=== PATIENT | male | born 1940 | race Caucasian/White ===

== ENCOUNTER → 2017-05-19 | Outpatient (CLI) | payer MEDICARE, OTHER ==
[2017-05-19 14:14] LABS: HEMOGLOBIN A1a 1.2 %; HEMOGLOBIN A1b 2.1 %; HEMOGLOBIN Ao 81.7 %; HEMOGLOBIN LA1C 2.6 %; HEMOGLOBIN P3 4.7 %
== END ==
LOC: PLAB 10:34
DX: E11.9 Type 2 diabetes mellitus without complications (principal); Z12.5 Encounter for screening for malignant neoplasm of prostate
CPT/HCPCS: 36415; 83036; G0103

== ENCOUNTER → 2017-05-26 | Outpatient (CLI) | payer MEDICARE, OTHER ==
[2017-05-26 15:57] LABS: HEMOGLOBIN A1a 1.1 %; HEMOGLOBIN A1b 2.1 %; HEMOGLOBIN LA1C 2.5 %; HEMOGLOBIN P3 6.1 %
== END ==
LOC: PLAB 11:44
DX: E11.9 Type 2 diabetes mellitus without complications (principal)
CPT/HCPCS: 36415; 83036

== ENCOUNTER → 2017-09-01 | Outpatient (CLI) | payer MEDICARE, OTHER ==
[2017-09-01 16:19] LABS: HEMOGLOBIN A1C 6.8 % (4.3-6.0)
== END ==
LOC: PLAB 08:56
DX: E11.9 Type 2 diabetes mellitus without complications (principal)
CPT/HCPCS: 36415; 83036

== ENCOUNTER → 2017-11-13 | Outpatient (CLI) | payer MEDICARE, OTHER | LOC: PLAB 09:15 | DX: E11.9 Type 2 diabetes mellitus without complications (principal) | CPT/HCPCS: 36415; 83036 ==

== ENCOUNTER 2017-12-20 09:56 | Day surgery (SDC) | payer MEDICARE, OTHER ==
[~2017-12-20] VITALS: Ht 175.3 cm; Wt 89.7 kg
[2017-12-20] MEDS ORDERED: IOHEXOL 350 MG/ML 50 ML BTL (for Cath Lab) OTHER ONE (09:57)
[2017-12-20 10:38] VITALS: BP 156/74; PULSE 61; RESP 18; TEMP 97.5; O2SAT 99
[2017-12-20] MEDS ORDERED: GLIM2TAB PO (10:46)
[2017-12-20] MEDS ORDERED: TAMS0.4C4 PO (10:46)
[2017-12-20] MEDS ORDERED: PLAV75TA29 PO (10:46)
[2017-12-20] MEDS ORDERED: LIPI10TA PO (10:46)
[2017-12-20] MEDS ORDERED: BENI40TA29 PO (10:46)
[2017-12-20] MEDS ORDERED: AMLO5 PO (10:46)
[2017-12-20] MEDS ORDERED: NAME10TA PO (10:46)
[2017-12-20] MEDS ORDERED: ASPI-183 PO (10:46)
[2017-12-20] MEDS ORDERED: LYRI50CA PO (10:46)
[2017-12-20] MEDS ORDERED: NEXI40CA PO (10:46)
[2017-12-20] MEDS ORDERED: NITR400A3 SL (10:46)
[2017-12-20] MEDS ORDERED: NS 1000P @30 MLS/HR (KVO) IV SCH (11:00)
[2017-12-20 11:06] LABS: AUTOMATED NEUTROPHIL # 4.5 TH/MM3 (1.8-7.7); BASOPHIL % 0.5 % (0.0-2.0); EOSINOPHIL # 0.1 TH/MM3 (0-0.4); EOSINOPHIL % 1.4 % (0.0-4.0); HEMATOCRIT 44.8 % (39.0-51.0); HEMOGLOBIN 15.4 GM/DL (13.0-17.0); LYMPH % 11.7 % (9.0-44.0); LYMPHOCYTE # 0.7 TH/MM3 (1.0-4.8); MEAN CELL VOLUME 84.3 FL (80.0-100.0); MEAN CORPUSCULAR HGB CONC 34.4 % (32.0-36.0); MEAN PLATELET VOLUME 9.4 FL (7.0-11.0); MONO % 6.1 % (0.0-8.0); MONOCYTE # 0.3 TH/MM3 (0-0.9); NEUT % 80.3 % (16.0-70.0); PLATELET COUNT 164 TH/MM3 (150-450); RED BLOOD COUNT 5.32 MIL/MM3 (4.50-5.90); RED CELL DISTRIBUTION WIDTH 13.6 % (11.6-17.2); WHITE BLOOD COUNT 5.6 TH/MM3 (4.0-11.0)
[2017-12-20 11:13] LABS: PROTHROMBIN TIME - PATIENT 10.4 SEC (9.8-11.6)
[2017-12-20 11:16] LABS: CALCIUM 9.4 MG/DL (8.5-10.1); CREATININE 1.52 MG/DL (0.60-1.30)
[2017-12-20] MEDS ORDERED: MIDAZOLAM HCL 2 MG/2 ML VIAL ONE (12:53)
[2017-12-20] MEDS ORDERED: LIDOCAINE HCL 1% PF 30 ML VIAL ONE (12:57)
--- NOTE | 2017-12-20 13:55 | CATHPROC ---
[facility] HIS Report Study Information Study Number Admission Scheduled Start Study Start [id number] Dec 20 2017 9:56AM 12/20/2017 Dec 20 2017 12:47PM [place] [facility] Cardiac Catheterization Admit Source Facility Department Other [facility] - Toddler Teacher Physician and Clinical Staff Initial MD Hirsch, Travis Track Production Engineer Monica Urbina,ZOEY Other cathlab, cathlab Recorder Alyssa Colvin,COYOTE HUNTER TECH2 Scrub Hostdejah, Cayetano,RT(R) Procedures Performed Procedure Location (Site) Vessel Name Coronary Angiograms LCA Left Coronary Coronary Angiograms RCA Right Coronary L Heart Cath LV Gram-hand inj. LV LV Ventricle Equipment Time Director Of Loss Prevention Description Size Mfg Part Number Used/Scraped TRANSDUCER, TRTalentEarthAVE [id number] 12:54 JACKSON PELLETIER * Used W/STOCKCOCK *[id number] INTRODUCER SET, 12:54 [employer] FR 5 [id number] *[id number] Used MICROPUNCTURE STIFF [id number] *[id number] 538-420 *[id number] 538-422 *[id number] 538-453S *[id number] 12:54 MEDLINE IND[employer] PACK, CCL CUSTOM * Used *[id number] 12:54 Advanced Circulatory PACER PEN, SKIN DUAL W/ RULER * Used *[id number] 12:54 [employer]ify WIRE, 3MMJ .035 180CM 180CM Used *[id number] PROBE COVER, STERILE [id number] 12:54 [employer] MEDICAL * Used ULTRASOUND W/ GEL *[id number] 12:54 NAMIC MANIFOLD, 4 PORT * Used *[id number] 12:54 NYCOMED OMNIPAQUE, 350 MG, 150ML 150ML [id number] Used [id number] 12:54 [employer] BLANKET,WARM AIR CCL * Used *[id number] 12:54 [employer] MEDICAL SHEATH, FR4 TERUMO (10CM) FR 4 Used *[id number] History: Current Medications Medication Dosage/Unit Route Frequency Last Date/Time Taken ASA PLAVIX NORVASC LYRICA Nexium NTG SL History: Allergies Allergy Reaction No Known Allergies History: Risk Factors Family History of Hypertension Dyslipidemia Previous NH Previous Heart Failure Premature CAD Yes Yes No Yes No Prior Valve Prior PCI Prior PCIDate Prior CABG Surgery No Yes 09/04/1995 No Cerebrovascular Peripheral Artery Chronic Lung On Dialysis Diabetes Diabetes Therapy Disease Disease Disease No No No No Yes Oral History: Symptoms/Diagnosis Selection Items SOB History: CV Disease Selection Items Known CAD History: Stress Tests Stress or Imaging Studies Performed Yes Standard Exercise Stress Test No Stress Echo No Stress Test SPECT No Stress Test CMR Stress Test CMR Result Stress Test CMR Ischemia Risk/Extent Yes Positive Intermediate Cardiac CTA Coronary Calcium Score No No History: Other Disease Selection Items CAD Gerd HTN History: NH/CV Data Previous Cath Date 09/04/1995 History: Other Current Smoker Method Quit Packs a Day Years Used Pack Years No Cigarettes 17 Years Ago 1 30 30 Labs Hgb (g/dl) Hct (%) WBC (l/cumm) Platelets (thousands) 11.60-17.00 35.00-51.00 4.00-11.00 150.00-450.00 15.4 44.8 5.6 164 Glucose (mg/dl) BUN (mg/dl) Creatinine (mg/dl) BUN:Creatinine (1:x) 74.00-106.00 7.00-18.00 0.50-1.30 10.00-20.00 176 25 1.5 16.7 Na (meq/l) K (meq/l) 136.00-145.00 3.50-5.10 139 4.5 INR (PTT:PT) 0.90-1.10 1 Medication Medication Total Dose (Bolus/Oral) Medication Total Dosage/Unit 1% XYLOCAINE 20 mL FENTANYL 50 mcg OXYGEN 2 l/min VERSED 1 mg Medications (Bolus/Oral) Medication Time Given Dosage/Unit Administered By Reason VERSED 12/20/2017 1:13:34 PM 1 mg Monica Urbina 1 mg VERSED given in lab by Monica Urbina RN in Left Antecubital via Peripheral IV. Ordered by Travis Stokes. FENTANYL 12/20/2017 1:14:00 PM 50 mcg Monica Urbina 50 mcg FENTANYL given in lab by Monica Urbina RN in Left Antecubital via Peripheral IV. Ordered by Travis Hirsch. OXYGEN 12/20/2017 1:14:04 PM 2 l/min Monica Urbina 2 l/min OXYGEN given in lab by Monica Urbina RN via Nasal. Ordered by Travis Hirsch. 1% XYLOCAINE 12/20/2017 1:15:45 PM 20 mL Travis Hirsch 20 mL 1% XYLOCAINE given in lab by Travis Hirsch in Right Groin via Subcutaneous. Ordered by Travis Abbott. Medication (Drip) Medication Time Given Dosage/Unit Concentration/Unit Diluent (ml) Solution IV Solutions 12/20/2017 12:51:36 PM 0 mL (IV) 500 NaCl .9 IV Solutions given in lab by Monica Urbina RN in Left Antecubital via Peripheral IV. Pump/Drip Flow = 20 ml/hr using NaCl .9. Ordered by Travis Hirsch. Initial Case Assessment Cardiovascular HR NIBP Chest Pain 49 179/81 0 Edema Present Skin color Skin None Normal Warm Dry Circulatory - Right Pulses Dorsalis Pedis Femoral 3 3 Scale (0,1,2,3,4,d) Circulatory - Left Pulses Dorsalis Pedis Femoral 3 3 Scale (0,1,2,3,4,d) Neurological State Oriented to time-place- Alert Moves all extremities person Respiration - General Respiration Rate SpO2 (%) (B/min) 16 98 Final Case Assessment Cardiovascular HR NIBP 55 163/83 Edema Present Skin color Skin None Normal Warm Dry Circulatory - Right Pulses Dorsalis Pedis Femoral 3 3 Scale (0,1,2,3,4,d) Circulatory - Left Pulses Dorsalis Pedis Femoral 3 3 Scale (0,1,2,3,4,d) Neurological State Oriented to time-place- Alert Moves all extremities person Respiration - General Respiration Rate SpO2 (%) (B/min) 14 97 Chronological Log Time Study Chronological Log 12:47:08 Patient arrived via Bed. 12:47:09 Patient Name, D.O.B, / Armband Verified By R.N. Vitals capture started with the following parameters, Patient=Adult, Interval=5 min, Initial Pr zcrvsk=478 mmHg, 12:47:11 Deflation Rate=5 mmHg, Cuff placed on Right Ankle 12:49:26 HR=49 bpm, DHNF=715/81 mmhg, SpO2=98.0 %, Resp=16 B/min, Pain=0, Edward=10, [place]=2 12:51:22 Consent signed by the physician and the patient and verified by the Toddler Teacher staff. 12:51:23 Pre-op and post- op instructions given; patient acknowledges understanding of instructions. 12:51:31 Patient has been NPO for Less than 6Hrs. 12:51:32 no Skin Breakdown- 12:51:33 Patient Warmer Placed on the Table. 12:51:34 Arik Prominences Protected 12:51:35 A # 20 IV was noted in the Antecubital (left). Grade = 0 IV Solutions given in lab by Monica Urbina, RN in Left Antecubital via Peripheral IV. Pump/Dri p Flow = 20 ml/hr using 12:51:36 NaCl .9. Ordered by Travis Hirsch. 12:51:37 History and physical on the chart or being dictated. Assessment: Initial Case, HR=49 BPM, XYQI=912/81 mmhg, Chest Pain=0, Edema=None, Color=Normal, Skin = Warm, Dry Right Pulses: Hany Ped=3, Femoral=3 12:51:38 Left Pulses: Hany Ped=3, Femoral=3 Neurological: State=Alert, Ox3, FERNANDEZ Respiration: Resp=16 B/min, SpO2=98 % 12:52:32 Reference ECG taken 12:53:03 HR=51 bpm, OENX=161/71 mmhg, SpO2=97.0 %, Resp=15 B/min, Pain=0, Edward=10, [place]=2 12:57:58 HR=52 bpm, WYND=733/114 mmhg, SpO2=93.0 %, Resp=9 B/min, Pain=0, Edward=10, [place]=2 13:02:59 HR=53 bpm, WZPF=756/74 mmhg, SpO2=98.0 %, Resp=15 B/min, Pain=0, Edward=10, [place]=2 13:03:13 Bilateral groins prepped with 2% chlorhexidine, and draped after a 3 minute waiting time. 13:04:43 Pressure channel 1 zeroed. 13:08:41 HR=51 bpm, XMDI=991/176 mmhg, SpO2=97.0 %, Resp=12 B/min, Pain=0, Edward=10, [place]=2 13:13:07 HR=52 bpm, BFMR=495/65 mmhg, SpO2=93.0 %, Resp=12 B/min, Pain=0, Edward=10, [place]=2 13:13:34 1 mg VERSED given in lab by Monica Urbina RN in Left Antecubital via Peripheral IV. Order ed by Travis Hirsch. 50 mcg FENTANYL given in lab by Monica Urbina RN in Left Antecubital via Peripheral IV. Order ed by Torrey, 13:14:00 Michaelun. 13:14:04 2 l/min OXYGEN given in lab by Monica Urbina RN via Nasal. Ordered by Travis Hirsch. 13:15:07 Case Start 20 mL 1% XYLOCAINE given in lab by Travis Hirsch in Right Groin via Subcutaneous. Ordered by Torrey, 13:15:45 Michaelun. 13:17:30 Access site was Right Femoral Artery. A INTRODUCER SET, MICROPUNCTURE STIFF FR 5 was advanced into the Fem Art (right) using the Rl fied Seldinger 13:17:37 technique. A SHEATH, FR4 TERUMO (10CM) FR 4 was exchanged in the Fem Art (right). This was necessary in or ix to achieve 13:17:45 vascular hemostasis. A JL 4.0 INFINITI CATHETER FR 4 was advanced over a wire. OMNIPAQUE, 350 MG, 150ML 150ML was us ed for 13:18:11 injections. 13:18:31 HR=57 bpm, SINU=981/48 mmhg, SpO2=97.0 %, Resp=12 B/min, Pain=0, Edward=10, [place]=2 Recorded Pressure: Ao, HR=55, Condition=Condition 1 13:19:06 (Aorta) Ao 142/62/92 13:20:10 The LCA was injected and visualized at various angles. OMNIPAQUE, 350 MG, 150ML 150ML used . After removing the current catheter a 3DRC INFINITI CATHETER FR 4 was advanced over a WIRE, 3MM J .035 180CM 13:20:53 180CM. 13:22:42 The RCA was injected and visualized at various angles. OMNIPAQUE, 350 MG, 150ML 150ML used . 13:22:59 HR=56 bpm, BYSR=913/76 mmhg, SpO2=96.0 %, Resp=16 B/min, Pain=0, Edward=10, [place]=2 After removing the current catheter a JL 5.0 INFINITI CATHETER FR 4 was advanced over a WIRE, 3 MMJ .035 180CM 13:24:17 180CM. 13:25:46 The LCA was injected and visualized at various angles. OMNIPAQUE, 350 MG, 150ML 150ML used . 13:28:43 HR=56 bpm, QUVJ=905/76 mmhg, SpO2=96.0 %, Resp=12 B/min, Pain=0, Edward=10, [place]=2 13:30:27 Catheter was removed A PIGTAIL ANG. INFINITI CATHETER FR 4 was advanced over a wire. OMNIPAQUE, 350 MG, 150ML 150ML was used 13:30:29 for injections. Recorded Pressure: LV, HR=54, Condition=Condition 1 13:32:20 (Left Ventricle) LV 150/8/19 13:32:43 The LV was manually injected with 10 cc's and visualized. OMNIPAQUE, 350 MG, 150ML 150ML us ed. Recorded Pressure: LV, Ao, HR=54, Condition=Condition 1 13:33:19 (Left Ventricle) LV 146/12/23, (Aorta) Ao 148/65/97 13:33:32 HR=52 bpm, QOVS=610/76 mmhg, SpO2=97.0 %, Resp=15 B/min, Pain=0, Edward=10, [place]=2 13:37:16 Catheter was removed 13:37:18 Case End 13:37:58 HR=55 bpm, TJXT=386/83 mmhg, SpO2=97.0 %, Resp=14 B/min, Pain=0, Edward=10, [place]=2 Assessment: Final Case, HR=55 BPM, EJNJ=725/83 mmhg, Edema=None, Color=Normal, Skin = Warm, Dr y Right Pulses: Hany Ped=3, Femoral=3 13:38:03 Left Pulses: Hany Ped=3, Femoral=3 Neurological: State=Alert, Ox3, FERNANDEZ Respiration: Resp=14 B/min, SpO2=97 % 13:38:38 Vitals capture stopped. 13:39:56 Sheath(s) left in place, will be removed in Holding Area 13:40:50 Catheter(s) removed without difficulty 13:40:53 Sterile dressing applied to site 13:41:05 No case complications noted. 13:41:07 Cine recording checked. 13:41:08 Bedside Report will be given. 13:41:14 A Left Heart Cath was performed. 13:41:15 Patient moved to stretcher 13:41:16 Clinical correlaton risk stratification. End Study - Maximum Contrast Load Max Contrast Load (mL) 298.9 End Study - Radiation Exposure Fluoro Time (minutes) 2.7 End Study - Patient Disposition Complications Transferred To No Telemetry Bed
[2017-12-20] MEDS ORDERED: PAPAVERINE INJ 60 MG, NITROGLYCERIN INJ 100 MCG, DILTIAZEM INJ 100 MG in SODIUM CHLORID... IRRIGATION SCH (14:15)
[2017-12-20] MEDS ORDERED: CHLORHEXIDINE GLUCONATE 4% SOLN 120 ML BTL TOPICAL SCH (14:15)
[2017-12-20] MEDS ORDERED: CEFAZOLIN INJ 500 MG in SODIUM CHLORIDE 0.9% IRR BTL 500 ML IRRIGATION SCH (14:15)
[2017-12-20] MEDS ORDERED: METOPROLOL TARTRATE 25 MG TAB PO SCH (14:15)
[2017-12-20] MEDS ORDERED: ceFAZolin 2 GM PREMIX 50 ML IV SCH (14:15)
--- NOTE | 2017-12-20 14:18 | PD.CAR.PN ---
CVT Progress Note Subjective/Hospital Course: Pt examined and chart reviewed. Full consult dictated. OR next week. Needs to be off of Plavix for 5 days. Risk Model and Variables - STS Adult Cardiac Surgery Database Version 2.81 RISK SCORES About the STS Risk Calculator Procedure: CAB Only Risk of Mortality: 2.548% Morbidity or Mortality: 20.746% Long Length of Stay: 9.962% Short Length of Stay: 30.166% Permanent Stroke: 2.098% Prolonged Ventilation: 12.327% DSW Infection: 0.574% Renal Failure: 9.499% Reoperation: 6.282% Objective: Vital Signs Date Time Temp Pulse Resp B/P (MAP) Pulse Ox O2 Delivery O2 Flow Rate FiO2 12/20/17 10:38 97.5 61 18 156/74 (101) 99 Labs: Laboratory Tests Test 12/20/17 10:33 White Blood Count 5.6 TH/MM3 (4.0-11.0) Red Blood Count 5.32 MIL/MM3 (4.50-5.90) Hemoglobin 15.4 GM/DL (13.0-17.0) Hematocrit 44.8 % (39.0-51.0) Mean Corpuscular Volume 84.3 FL (80.0-100.0) Mean Corpuscular Hemoglobin 29.0 PG (27.0-34.0) Mean Corpuscular Hemoglobin Concent 34.4 % (32.0-36.0) Red Cell Distribution Width 13.6 % (11.6-17.2) Platelet Count 164 TH/MM3 (150-450) Mean Platelet Volume 9.4 FL (7.0-11.0) Neutrophils (%) (Auto) 80.3 % (16.0-70.0) Lymphocytes (%) (Auto) 11.7 % (9.0-44.0) Monocytes (%) (Auto) 6.1 % (0.0-8.0) Eosinophils (%) (Auto) 1.4 % (0.0-4.0) Basophils (%) (Auto) 0.5 % (0.0-2.0) Neutrophils # (Auto) 4.5 TH/MM3 (1.8-7.7) Lymphocytes # (Auto) 0.7 TH/MM3 (1.0-4.8) Monocytes # (Auto) 0.3 TH/MM3 (0-0.9) Eosinophils # (Auto) 0.1 TH/MM3 (0-0.4) Basophils # (Auto) 0.0 TH/MM3 (0-0.2) CBC Comment DIFF FINAL Differential Comment Prothrombin Time 10.4 SEC (9.8-11.6) Prothromb Time International Ratio 1.0 RATIO Activated Partial Thromboplast Time 27.1 SEC (24.3-30.1) Blood Urea Nitrogen 25 MG/DL (7-18) Creatinine 1.52 MG/DL (0.60-1.30) Random Glucose 176 MG/DL (74-106) Calcium Level 9.4 MG/DL (8.5-10.1) Sodium Level 139 MEQ/L (136-145) Potassium Level 4.5 MEQ/L (3.5-5.1) Chloride Level 105 MEQ/L (98-107) Carbon Dioxide Level 27.0 MEQ/L (21.0-32.0) Anion Gap 7 MEQ/L (5-15) Estimat Glomerular Filtration Rate 45 ML/MIN (>89) Result Diagram: 12/20/17 1033 12/20/17 1033 Anupama Hill MD Dec 20, 2017 14:18
[2017-12-20] MEDS ORDERED: PILL SPLITTER OTHER PRN (14:30)
--- NOTE | 2017-12-20 14:40 | MA ---
cc: Travis Hirsch MD,Eugene Humphreys MD DATE: 12/20/2017 INDICATIONS FOR CATHETERIZATION: Unstable angina, abnormal nuclear stress test. CONSENT: Full informed consent was obtained prior to the procedure. The risks of , bleeding, myocardial infarction, perforation, aspiration, foreseen and unforeseen complications were reviewed. The patient fully appeared to understand the risks. The risks of bypass surgery, stent placement and also renal failure given his elevated creatinine were also reviewed in great detail. PROCEDURAL STATEMENT: The patient was draped and prepped in the usual manner. Right femoral artery was entered using a micropuncture technique. Via the 4-Jordanian sheath left and right coronary catheters were used to intubate the left and right coronaries, pigtail catheter to left ventricle. Multiple angiographic views were carried out. At the end of the catheterization procedure, all catheters and sheaths were removed. Manual pressure was applied until good hemostasis was achieved and the patient returned to his room in stable condition. FINDINGS: HEMODYNAMICS: Aortic pressure was 148/65, mean of 97. The left ventricular pressure 146 with a left ventricular end-diastolic pressure of 23. No evidence of a significant gradient on pullback across the LV outflow tract and aortic valve. LEFT VENTRICULOGRAM: The overall left ventricular ejection fraction was 60%. No evidence of significant mitral regurgitation or mural thrombus. CORONARIES: The left main was free of significant disease. The left anterior descending artery had 50% stenosis proximally. There was evidence of a previously placed stent just after a medium size diagonal branch. The stent showed a 99% restenosis just distal to this in the distal LAD with further long 60%-70% stenosis in a calcified vessel. The circumflex vessel was large with a medium size first obtuse marginal branch. In the mid circumflex there was 75% stenosis. There was a large second obtuse marginal branch. The right coronary artery was a large, dominant vessel with a large posterior descending artery. Small bifurcating posterolateral branches that were free of significant disease. CONCLUSION: High-grade restenosis of mid LAD just at the point of the diagonal branch, high-grade stenosis of the circumflex. PLAN: Consider bypass surgery to the LAD and because of the proximal LAD stenosis the diagonal branch and the OM2 versus medical management. Salvage angioplasty of the circumflex and proximal LAD would also be another option; however, the patient's creatinine is elevated at 1.51. This would increase the risks of renal failure with prolonged stenting procedures, etc. Given his relatively youngish age, a good long-term prognosis would be obtained with the LAD, diagonal, and OM surgeries. Will refer to Dr. Hill for an opinion regarding off-pump bypass surgery. MD CARLENE Vasquez/TL/ , 01:52 PM , 02:30 PM
--- NOTE | 2017-12-20 15:07 | MB ---
cc: Anupama Hill MD,Travis Kenney,Eugene Humphreys MD DATE: 12/20/2017 DATE OF CONSULTATION: 12/20/2017 REFERRING PHYSICIAN: Dr. Hirsch REASON FOR CONSULTATION: Symptomatic coronary artery disease. HISTORY OF PRESENT ILLNESS: Mr. Farr is a very pleasant 77-year-old gentleman with a known history of coronary artery disease, status post previous MO and stenting of the LAD in 1995, who now presents with a couple-month history of recurrent chest pain relieved with nitroglycerin spray. The patient has been seen by Dr. Hirsch and has undergone further workup including an echocardiogram, which has revealed preserved ventricular function and a nuclear stress test which was abnormal. Based on this, he was taken to the dye lab technician today underwent a coronary angiogram, which revealed severe 99% disease involving the mid to distal LAD as well as associated proximal LAD lesion of 60% and circumflex lesion of 80% I am now being considered for surgical revascularization therapy. At the present time, he remains pain free, hemodynamically stable with no evidence of ongoing ischemia. PAST MEDICAL HISTORY: 1. Significant for coronary artery disease, status post MO and stenting as described above. 2. Hypertension. 3. Diabetes mellitus. 4. Dementia. 5. Idiopathic progressive neuropathy. 6. History of stroke. 7. Meza's esophagus. 8. Hyperlipidemia. 9. GERD. 10. Allergic rhinitis. PAST SURGICAL HISTORY: 1. Remarkable for colonoscopy and EGD by Dr. Tena in February 2017. 2. Heart catheterization in 2014. 3. Colonoscopy in 2011. 4. Intracoronary stent in 1995, as described above. 5. Back surgery in 1973. ALLERGIES: THE PATIENT REPORTS NO KNOWN DRUG ALLERGIES. CURRENT MEDICATIONS: Include: 1. Tamsulosin. 2. Plavix. 3. Atorvastatin. 4. Nitroglycerin spray. 5. Amlodipine. 6. Benicar. 7. Aspirin. 8. Pregabalin. 9. Memantine. 10. Nexium. 11. Glimepiride. SOCIAL HISTORY: Denies any history of smoking or illicit drug use. He is a social drinker and drinks about 2-4 times a month. FAMILY HISTORY: Significant for premature coronary artery disease in a sibling as well as in the parents. REVIEW OF SYSTEMS: As above. All other parameters are negative. PHYSICAL EXAMINATION: VITAL SIGNS: On examination today, he is 175 cm tall, weighs 89 kg. Blood pressure is 136/74 with a heart rate of 61 which is regular, respiratory rate is 18 and he is afebrile. HEENT: Normocephalic, atraumatic. Pupils nonreactive. Extraocular muscles intact. NECK: No cervical lymphadenopathy, carotid bruit or JVD. CARDIOVASCULAR: Regular rate and rhythm. Normal S1, S2, without gallops, rubs, or murmurs. LUNGS: Clear to auscultation bilaterally. ABDOMEN: Soft, nontender, nondistended. Normoactive bowel sounds. No hepatosplenomegaly. EXTREMITIES: Bilateral lower extremity pulses are intact without cyanosis, clubbing or edema. No venous varicosities. NEUROLOGIC: Neurologically intact with no focal deficits. He does have a slight left drooping of the oral angle. IMPRESSION: 1. Two-vessel coronary artery disease, status post previous stenting. 2. Previous myocardial infarction. 3. Previous stroke. 4. Gastroesophageal reflux disease. 5. Diabetes mellitus. 6. Hypertension. 7. Hyperlipidemia. 8. Dementia. 9. Meza's esophagus. PLAN: The clinical, echo and angiographic findings were discussed in detail with the patient today. Therapeutic options available including off-pump coronary artery bypass grafting was recommended. I agree with Dr. Hirsch that he would maximally benefit from bypass to his LAD, diagonal, as well as OM distributions. The risks, complications, and benefits of the surgical procedure and the technical details were discussed in detail and all questions answered. He appears to comprehend the given information and wishes to proceed with the planned operation. Given the fact that he is on Plavix, he will need to be off that for 5 days prior to entertaining surgical intervention. To that effect, we will schedule his surgery for next week. In the meantime, we will obtain vein mapping, PFTs, as well as carotid duplex imaging. Thank you for allowing me to participate in the care of this patient. Of note, the STS risk calculator was performed and is documented in the chart and the risks were discussed with the patient in detail. MD CHUY Swan/CEE , 02:30 PM , 03:06 PM
[2017-12-20] MEDS ORDERED: PAPAVERINE INJ 60 MG, NITROGLYCERIN INJ 100 MCG, VERAPAMIL INJ 100 MG in SODIUM CHLORID... IRRIGATION SCH ×8 (16:15)
[2017-12-20 17:18] LABS: HEMOGLOBIN A1C 7.5 % (4.3-6.0)
--- NOTE | 2017-12-20 18:08 | RADRPT ---
EXAM DATE/TIME: 12/20/2017 17:45 [facility] COMPARISON: No previous studies available for comparison. INDICATIONS : Evaluate for pneumonia, pneumothorax, or communicable disease. Pre-op CABG. MEDICAL HISTORY : None. SURGICAL HISTORY : None. ENCOUNTER: Initial ACUITY: 1 day PAIN SCORE: 0/10 LOCATION: Bilateral chest FINDINGS: PA and lateral views of the chest demonstrate the lungs to be symmetrically aerated without evidence of mass, infiltrate or effusion. The cardiomediastinal contours are unremarkable. Osseous structure s are intact. CONCLUSION: No acute disease. Watson Blair MD on December 20, 2017 at 18:06 Board Certified Radiologist. This report was verified electronically.
[2017-12-20 19:01] LABS: BILIRUBIN, URINE NEG (NEG); BLOOD, URINE NEG (NEG); GLUCOSE,URINE NEG (NEG); HYALINE CAST, URINE 2 /lpf (RARE); KETONE, URINE NEG (NEG); MUCUS URINE FEW /lpf (OCC); NITRITE,URINE NEG (NEG); PH, URINE 5.5 (5.0-8.5); URINE COLOR LIGHT-YELLOW (YELLW/STRAW); URINE LEUKOCYTE ESTERASE NEG (NEG)
--- NOTE | 2017-12-20 19:48 | RADRPT ---
EXAM DATE/TIME: 12/20/2017 19:03 [facility] COMPARISON: No previous studies available for comparison. INDICATIONS : Preoperative coronary artery bypass graft. MEDICAL HISTORY : Hypertension. Hypercholesterolemia. CVA. NE. Diabetes. GERD. Dementia. Meza's esophagus. form er smoker. respiratory disorder. gastrointestinal disorders. SURGICAL HISTORY : Heart catheterization. Cardiac stent. Back surgery. Intracoronary stent 1995. ENCOUNTER: Initial ACUITY: 1 day PAIN SCORE: 0/10 LOCATION: Bilateral Lower extremity GREATER SAPHENOUS VEIN THIGH: PROXIMAL: Right 8 mm Left 8 mm MID: Right 3 mm Left 4 mm DISTAL: Right 3 mm Left 3 mm CALF: PROXIMAL: Right 2 mm Left 3 mm MID: Right 3 mm Left 2 mm DISTAL: Right 3 mm Left 2 mm FINDINGS: The venous system of the lower extremities are patent by color Doppler imaging. Measurements of the leg veins (in mm) are listed above. CONCLUSION: Patent saphenous veins bilaterally Watson Blair MD on December 20, 2017 at 19:46 Board Certified Radiologist. This report was verified electronically.
--- NOTE | 2017-12-20 19:49 | RADRPT ---
EXAM DATE/TIME: 12/20/2017 18:05 [facility] COMPARISON: No previous studies available for comparison. INDICATIONS : Preoperative coronary artery bypass graft. MEDICAL HISTORY : Hypertension. Hypercholesterolemia. CVA. [place]. Diabetes. GERD. Dementia. Meza's esophagus. for kaur smoker. respiratory disorder. gastrointestinal disorders. SURGICAL HISTORY : Heart catheterization. Cardiac stent. Back surgery. Intracoronary stent 1995. ENCOUNTER: Initial ACUITY: 1 day PAIN SCORE: LOCATION: Bilateral neck PEAK SYSTOLIC VELOCITIES (cm/sec): ICA/CCA RATIO: Right: 1.5 Left: 1.4 ICA: Right: 114 Left: 123 CCA: Right: 78 Left: 90 ECA: Right: 147 Left: 135 VERTEBRAL: Right: 73 antegrade Left: 65 antegrade Elevated flow velocities and ICA/CCA ratios have been found to correlate with increased degrees of vessel stenosis, calculated as percentage of diameter relative to a normal segment of distal ICA/CCA FINDINGS: RIGHT CAROTID: Mild-moderate eccentric plaque. The No significant stenosis is visualized. The waveforms are within normal limits. LEFT CAROTID: Mild-moderate eccentric plaque. No significant stenosis is visualized. The waveforms are within norm al limits. VERTEBRAL ARTERIES: Antegrade flow is seen in both vertebral arteries. MISCELLANEOUS: None. CONCLUSION: No evidence of flow-limiting carotid stenosis. Watson Blair MD on December 20, 2017 at 19:46 Board Certified Radiologist. This report was verified electronically.
--- NOTE | 2017-12-20 19:50 | RADRPT ---
EXAM DATE/TIME: 12/20/2017 18:40 [facility] COMPARISON: No previous studies available for comparison. INDICATIONS : Preoperative coronary artery bypass graft. MEDICAL HISTORY : Hypertension. Hypercholesterolemia. CVA. ND. Diabetes. GERD. Dementia. Meza's esophagus. form er smoker. respiratory disorder. gastrointestinal disorders. SURGICAL HISTORY : Cardiac stent. Back surgery. Intracoronary stent 1995. ENCOUNTER: Initial ACUITY: 1 day PAIN SCORE: 0/10 LOCATION: Bilateral Lower extremity TECHNIQUE: Venous ultrasound of the left and right leg was performed from the inguinal ligament to the proximal calf. Real-time, color Doppler and spectral tracing, compression and augmentation techniques were us ed. FINDINGS: RIGHT LEG: There is normal compressibility of the deep venous system from the inguinal region to the proximal ca lf. No echogenic clot is seen in the lumen of the common femoral, femoral, popliteal, and posterior tibial veins. There is a normal response of the venous system to proximal and distal augmentation an d respiration. LEFT LEG: There is normal compressibility of the deep venous system from the inguinal region to the proximal ca lf. No echogenic clot is seen in the lumen of the common femoral, femoral, popliteal, and posterior tibial veins. There is a normal response of the venous system to proximal and distal augmentation an d respiration. CONCLUSION: Normal examination. Watson Blair MD on December 20, 2017 at 19:48 Board Certified Radiologist. This report was verified electronically.
[2017-12-20] MEDS ORDERED: MUPIROCIN 2% OINT 1 APPLIC/GM SYR EACH NARE SCH (21:00)
--- NOTE | 2017-12-20 21:42 | EKG ---
Date Performed: 12/20/2017 Time Performed: 10:50:10 PTAGE: 77 years EKG: Sinus bradycardia. Normal ECG except for rate NO PREVIOUS TRACING DOCTOR: Gabrielle Baker Interpretating Date/Time 12/20/2017 21:41:56
== END 2017-12-20 19:40 | disposition home or self-care (01) ==
LOC: HDOC 09:56 → HDIC 09:57 → HDOC 19:40
PROVIDERS: ATTEND Internal Medicine Cardiovascular Disease
DX: I25.110 Atherosclerotic heart disease of native coronary artery with unstable angina pectoris (principal); I10 Essential (primary) hypertension; E78.5 Hyperlipidemia, unspecified; I25.2 Old myocardial infarction; E11.9 Type 2 diabetes mellitus without complications; E78.00 Pure hypercholesterolemia, unspecified; F03.90 Unspecified dementia, unspecified severity, without behavioral disturbance, psychotic disturbance, mood disturbance, and anxiety; K21.9 Gastro-esophageal reflux disease without esophagitis; Z79.02 Long term (current) use of antithrombotics/antiplatelets; Z79.82 Long term (current) use of aspirin; Z86.73 Personal history of transient ischemic attack (TIA), and cerebral infarction without residual deficits; Z95.5 Presence of coronary angioplasty implant and graft; Z01.818 Encounter for other preprocedural examination
CPT/HCPCS: 71046; 80048; 81001; 83036; 85025; 85610; 85730; 87641; 93005; 93458; 93880; 93970; 93998; 94010; 99152; 99153; C1769; C1893; J2250; J3010; Q9967

== ENCOUNTER → 2017-12-28 | Outpatient (CLI) | payer MEDICARE, OTHER ==
[~2017-12-28] MED LIST: AMIO200T PO; AMLO5 PO; ASPI-183 PO; ASPI81 PO; ATOR40TA16 PO; BENI40TA29 PO; CEPH-460 PO; DOCU1CAP39 PO; GLIM2TAB PO; HYDR-3516 PO; LIPI10TA PO; LYRI50CA PO; METO25TA3 PO; NAME10TA PO; NEXI40CA PO; NITR400A3 SL; OLME1TAB PO; PLAV75TA29 PO; TAMS0.4C4 PO; THERM PO
== END ==
LOC: CLAB 13:16
PROVIDERS: ATTEND Thoracic Surgery (Cardiothoracic Vascular Surgery)
DX: I25.10 Atherosclerotic heart disease of native coronary artery without angina pectoris (principal)
CPT/HCPCS: 36415; 86850; 86900; 86901

== ENCOUNTER 2017-12-29 05:22 | Inpatient (IN) | payer MEDICARE, OTHER ==
[~2017-12-29] VITALS: Ht 175.3 cm; Wt 93.0 kg
[2017-12-29] VITALS (12 sets, daily range): BP systolic 91–142; BP diastolic 42–57; PULSE 52–81; RESP 14–16; TEMP 97.4–99; O2SAT 94–98
[~2017-12-29 05:22] MED LIST changes: -AMIO200T PO; -ASPI81 PO; -ATOR40TA16 PO; -CEPH-460 PO; -DOCU1CAP39 PO; -HYDR-3516 PO; -METO25TA3 PO; -OLME1TAB PO; -THERM PO
[2017-12-29] MEDS ORDERED: SODIUM CHLORID 0.9% 500 ML IV PRN (05:45)
[2017-12-29] MEDS ORDERED: CEFAZOLIN 500 MG in NS IRR BTL 500 ML IRRIGATION SCH (05:45)
[2017-12-29] MEDS ORDERED: SODIUM CHLORIDE 0.9% FLUSH 10 ML FLUSH IV FLUSH PRN ×3 (05:45→11:15)
[2017-12-29] MEDS ORDERED: DEXTROSE 50% IN WATER 50 ML VIAL(D50) IV PUSH PRN ×2 (05:45→11:15)
[2017-12-29] MEDS ORDERED: PAPAVERINE INJ 60 MG, NITROGLYCERIN INJ 100 MCG, VERAPAMIL INJ 100 MG in SODIUM CHLORID... IRRIGATION SCH (05:45)
[2017-12-29] MEDS ORDERED: LACTATED RINGER'S 1000 ML IV PRN (05:45)
[2017-12-29] MEDS ORDERED: CHLORHEXIDINE GLUCONATE 2 % 1 PACK (2 CLOTHS) TOPICAL PRN (05:45)
[2017-12-29] MEDS ORDERED: ceFAZolin 2 GM PREMIX 50 ML IV SCH (05:45)
[2017-12-29] MEDS ORDERED: POVIDONE IODINE 5% (ANTISEPSIS KIT) 4 APPLICATIONS EACH NARE PRN (05:45)
[2017-12-29] MEDS ORDERED: INSULIN REGULAR 100 UNITS in NS 100 ML IV PRN (05:45)
[2017-12-29] MEDS ORDERED: METOPROLOL TARTRATE 25 MG TAB PO SCH (05:45)
[2017-12-29] MEDS ORDERED: CHLORHEXIDINE GLUCONATE 4% SOLN 120 ML BTL TOPICAL SCH (05:45)
[2017-12-29] MEDS ORDERED: METOPROLOL TARTRATE 25 MG TAB PO PRN (05:45)
[2017-12-29] MEDS ORDERED: HEPARIN SODIUM - SQ 10,000 UNITS/ML VIAL ONE (06:43)
[2017-12-29] MEDS ORDERED: ceFAZolin 2 GM PREMIX 50 ML ONE (06:44)
[2017-12-29] MEDS ORDERED: VANCOMYCIN HCL 1000 MG VIAL ONE (06:44)
[2017-12-29] MEDS ORDERED: ceFAZolin INJ 1,000 MG VIAL ONE (10:55)
[2017-12-29] MEDS ORDERED: LACTATED RINGER'S 1000 ML INJ 500 ML IV PRN (11:06)
[2017-12-29] MEDS ORDERED: DOPamine 800 MG/500 ML INJ 500 ML IV PRN (11:15)
[2017-12-29] MEDS ORDERED: RESP: ALBUTEROL 2.5 MG/IPRATROPIUM 0.5 MG NEB (PRN) NEB ×2 (11:15→15:15)
[2017-12-29] MEDS ORDERED: POTASSIUM CHLOR 20 MEQ PREMIX 100 ML IV PRN ×3 (11:15)
[2017-12-29] MEDS ORDERED: ACETAMINOPHEN 650 MG SUPP RECTAL PRN (11:15)
[2017-12-29] MEDS ORDERED: ONDANSETRON HCL 4 MG/2 ML VIAL IV PUSH PRN (11:15)
[2017-12-29] MEDS ORDERED: RESP: RACEPINEPHRINE 2.25% 0.5 ML NEB NEB PRN ×2 (11:15→15:15)
[2017-12-29] MEDS ORDERED: MAGNESIUM SULFATE INJ 2 GM in SODIUM CHLORIDE 0.9% INJ 100 ML IV PRN ×4 (11:15)
[2017-12-29] MEDS ORDERED: METOPROLOL TARTRATE 5 MG/5 ML VIAL IV PUSH PRN (11:15)
[2017-12-29] MEDS ORDERED: SODIUM BICARBONATE 8.4% SOLN 50 MEQ/50 ML VIAL IV PUSH PRN ×2 (11:15)
[2017-12-29] MEDS ORDERED: ACETAMINOPHEN 325 MG TAB PO PRN (11:15)
[2017-12-29] MEDS ORDERED: PHENYLEPHRINE INJ 40 MG in DEXTROSE 5% IN WATE 500 ML INJ 496 ML IV PRN ×2 (11:15)
[2017-12-29] MEDS ORDERED: POTASSIUM CHLORIDE 20 MEQ CONTROLLED RELEASE TAB PO PRN ×2 (11:15)
[2017-12-29] MEDS ORDERED: CALCIUM CHLORIDE 10% 1 GRAM/10 ML VIAL IV PUSH PRN (11:15)
[2017-12-29] MEDS ORDERED: Post-op Orders (for Pharmacy) OTHER ONE (11:15)
[2017-12-29] MEDS ORDERED: hydrALAZINE HCL 20 MG/ML VIAL IV PUSH PRN (11:15)
--- NOTE | 2017-12-29 11:15 | PD.OP ---
cc: Travis Hirsch MD; Anupama Hill MD Operative Report Date of Surgery: Dec 29, 2017 Preoperative Diagnosis: Postoperative Diagnosis: Procedure: 1. Off-pump Coronary Artery Bypass Grafting x 3 with Left Internal Mammary Artery (VIVAS) to Left Anterior Descending (LAD), reverse saphenous vein graft to the Diagonal 1 (D1) branch of the LAD, reverse saphenous vein graft to the Obtuse Marginal 2 (OM2) 2. Left Leg Endoscopic Vein [place] 3. Intraoperative Vein Mapping Surgeon: Anupama Hill Pilot Control Operator Helper(s): Petr Mccallum Operation and Findings: PREPROCEDURE DIAGNOSES 1. Severe Two Vessel Coronary Artery Disease. 2. 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 Diabetes mellitus POSTPROCEDURE DIAGNOSES Same SURGICAL PROCEDURE 1. Off-pump Coronary Artery Bypass Grafting x 3 with Left Internal Mammary Artery (VIVAS) to Left Anterior Descending (LAD), reverse saphenous vein graft to the Diagonal 1 (D1) branch of the LAD, reverse saphenous vein graft to the Obtuse Marginal 2 (OM2) 2. Left Leg Endoscopic Vein [place] 3. Intraoperative Vein Mapping SURGEON Anupama Hill MD CHEMICAL PLANT TECHNICAL DIRECTOR LOUIE Contreras ANESTHESIA General endotracheal SAMPLE HAND KARLIE Burns MD PREPARATION ChloraPrep. COUNTS Needle, sponge, and instrument counts were correct. DRAINS Two 32-Japanese mediastinal tubes. COMPLICATIONS None. INDICATIONS FOR PROCEDURE The patient is a 77-year-old presenting with chest pain. Patient was noted to have two-vessel coronary artery disease. The patient is being brought to the operating room for surgical revascularization therapy. PROCEDURE Patient was brought to the operating room and placed supine on the OR table. Following the induction of adequate general endotracheal anesthesia and placement of appropriate monitoring devices, intraoperative vein mapping was performed which revealed suitable-caliber conduit in bilateral thighs. The patient was then prepped and draped in standard sterile fashion. Next, 2500 units of intravenous heparin was given. The left greater saphenous vein was harvested endoscopically. This appeared to be a good-caliber conduit. Simultaneously, a median sternotomy was performed and the left internal mammary artery dissected free off the posterior sternal table. The patient was systemically heparinized and anticoagulation monitored by serial ACT measurements. The internal mammary artery had good pulsatile flow in it and was a good-caliber conduit. The pericardium was then divided in the midline, the cradle created and targets analyzed. At this point, all anastomoses were performed in a beating-heart fashion using the Maquet stabilizing system. The left internal mammary artery was anastomosed to the distal LAD (1.75 mm) in an end-to-side fashion using 7-0 Prolene. Segment of saphenous vein graft was then anastomosed to the D1 (1.75 mm) in an end-to-side fashion using 7-0 Prolene. The final segment of saphenous vein graft was then anastomosed to theOM1 (2 mm) in an end-to-side fashion using 7-0 Prolene. The proximal anastomoses were then constructed to the ascending aorta in a running manner using 6-0 Prolene. All anastomotic sites were inspected and appeared to be hemostatic and patent. Protamine solution was given. Strict hemostasis was assured. The closure was undertaken. 2 chest tubes were placed. The pericardium was reapproximated in the midline. The sternum was approximated using sternal wires. The muscular and fascial layer were then closed in 3 layers. The endoscopic vein harvest site was closed in 2 layers. The patient tolerated the procedure well and was transferred to CVICU in stable condition. Anupama Hill MD Dec 29, 2017 11:14
[2017-12-29] MEDS: INSULIN REGULAR (IV INFUSION) 100 UNITS in SODIUM CHLORIDE 0.9% INJ 99 ML IV PRN (11:38)
[2017-12-29] MEDS ORDERED: fentaNYL CITRATE 250 MCG/5 ML AMP ONE (11:49)
[2017-12-29] MEDS ORDERED: MIDAZOLAM HCL 2 MG/2 ML VIAL ONE (11:49)
[2017-12-29] MEDS ORDERED: SODIUM CHLOR 0.9% 250 ML INJ 250 ML IV ONE (12:00)
[2017-12-29] MEDS ORDERED: ARTIFICIAL TEARS OPTH OINT 3.5 APPLIC/3.5 GM TUBO EACH EYE ONE (12:00)
[2017-12-29] MEDS ORDERED: NORMOSOL R INJ 2,000 ML IV ONE (12:00)
[2017-12-29] MEDS ORDERED: DEXMEDETOMIDINE INJ 200 MCG in SODIUM CHLORIDE 0.9% INJ 50 ML IV PRN ×2 (12:00→15:45)
[2017-12-29] MEDS ORDERED: ePHEDrine/NS 25 MG/5 ML SYRINGE IV ONE (12:00)
[2017-12-29] MEDS ORDERED: DEXMEDETOMIDINE HCL 200 MCG/2 ML VIAL IV ONE (12:00)
[2017-12-29] MEDS ORDERED: PHENYLEPH/NS 1000 MCG/10 ML SYR IV ONE (12:00)
[2017-12-29] MEDS ORDERED: NS 100 ML (PAB BAG) 200 ML IV ONE (12:00)
[2017-12-29] MEDS ORDERED: NITROGLYCERIN 50 MG/DEXTROSE 5% SOLN 250 ML BTL IV ONE (12:00)
[2017-12-29] MEDS ORDERED: NITROGLYCERIN-D5W 50 MG/250 ML 250 ML IV PRN (12:00)
[2017-12-29] MEDS ORDERED: MORPHINE SULFATE 2 MG/ML SYRINGE IV PUSH PRN (12:00)
[2017-12-29] MEDS ORDERED: AMINOCAPROIC ACID INJ 250 MG/ML 20 ML VIAL IV ONE (12:00)
[2017-12-29] MEDS ORDERED: MEPERIDINE HCL 25 MG/ML VIAL IV PUSH PRN (12:00)
[2017-12-29] MEDS ORDERED: MAGNESIUM SULFATE 1 GM/2 ML VIAL IV ONE (12:00)
[2017-12-29] MEDS ORDERED: DOBUTamine PREMIX DRIP 250 ML IV PRN (12:00)
[2017-12-29] MEDS ORDERED: GLYCOPYRROLATE 0.2 MG/ML VIAL IV ONE (12:00)
[2017-12-29] MEDS ORDERED: VECURONIUM BROMIDE 10 MG VIAL IV ONE (12:00)
[2017-12-29] MEDS ORDERED: PROTAMINE SULFATE 250 MG/25 ML VIAL IV ONE (12:00)
[2017-12-29] MEDS ORDERED: HEPARIN SODIUM - SQ 10,000 UNITS/ML VIAL OTHER ONE (12:00)
[2017-12-29] MEDS ORDERED: LACTATED RINGER'S 1000 ML INJ 3,000 ML IV ONE (12:00)
[2017-12-29] MEDS: ACETAMINOPHEN 1000 MG/100 ML 100 ML IV SCH ×3 (12:06→23:15)
[2017-12-29] MEDS ORDERED: MIDAZOLAM HCL 5 MG/ML VIAL (1 ML) ONE (12:19)
[2017-12-29] MEDS: CALCIUM CHLORIDE INJ 1 GM in SODIUM CHLORIDE 0.9% INJ 100 ML IV PRN ×2 (12:41→23:16)
[2017-12-29] MEDS: ALBUMIN 5% INJ 250 ML IV PRN (12:46)
--- NOTE | 2017-12-29 12:51 | RADRPT ---
EXAM DATE/TIME: 12/29/2017 11:46 [facility] COMPARISON: CHEST PA & LAT, December 20, 2017, 17:45. INDICATIONS : S/P CABG. MEDICAL HISTORY : Hypertension. Hypercholesterolemia. CVA. NV. Diabetes. GERD. Dementia. Meza's esophagus. former sm oker. respiratory disorder. gastrointestinal disorders. SURGICAL HISTORY : Cardiac stent. Back surgery. Intracoronary stent 1995. ENCOUNTER: Initial ACUITY: 1 day PAIN SCORE: Non-responsive. LOCATION: Bilateral chest FINDINGS: A single view of the chest demonstrates endotracheal tube in good position. Central and left chest tu be without significant pneumothorax. NG enters stomach. Left central line in superior vena cava. Foca l airspace disease right midlung as well as some dependent and basilar airspace disease is present. CONCLUSION: 1. Support apparatus in good position. Focal consolidation right midlung laterally. Mild basilar depe ndent airspace disease. Postoperative median sternotomy with chest tubes. No pneumothorax. Demian Aranda MD on December 29, 2017 at 12:48 Board Certified Radiologist. This report was verified electronically.
--- NOTE | 2017-12-29 13:06 | PD.CAR.PN ---
CVT Progress Note Subjective/Hospital Course: 77-year-old / male initially seen 12/20/17, known history of coronary artery disease, status post previous MO and stenting of the LAD in 1995, who now presents with a couple-month history of recurrent chest pain relieved with nitroglycerin spray. The patient has been seen by Dr. Hirsch and has undergone further workup including an echocardiogram, which has revealed preserved ventricular function and a nuclear stress test which was abnormal. Based on this, he was taken to the chemical lab supervisor which revealed severe 99% disease involving the mid to distal LAD as well as associated proximal LAD lesion of 60 % and circumflex lesion of 80%. EF 55% PAST MEDICAL HISTORY: Significant for coronary artery disease, status post MO and stenting , Hypertension, Diabetes mellitus, Dementia, Idiopathic progressive neuropathy, History of stroke, Meza's esophagus, Hyperlipidemia, GERD, Allergic rhinitis He was electively admitted for surgery 12/29: Off-pump Coronary Artery Bypass Grafting x 3 with Left Internal Mammary Artery (VIVAS) to Left Anterior Descending (LAD), reverse saphenous vein graft to the Diagonal 1 (D1) branch of the LAD, reverse saphenous vein graft to the Obtuse Marginal 2 (OM2), Left Leg Endoscopic Vein [place] Objective: Vital Signs Date Time Temp Pulse Resp B/P (MAP) Pulse Ox O2 Delivery O2 Flow Rate FiO2 12/29/17 12:15 95 40 12/29/17 11:44 40 12/29/17 11:41 94 50 12/29/17 05:50 98.7 54 18 134/71 (92) 97 (1) BPH (benign prostatic hyperplasia) (2) Diabetes mellitus (3) Hyperlipemia (4) Hypertension (5) Dementia (6) Coronary artery disease (7) S/P CABG x 3 Sujata Molina Dec 29, 2017 13:05
--- NOTE | 2017-12-29 13:08 | HHI.FF ---
Face to Face Verification Diagnosis: (1) Coronary artery disease (2) Diabetes mellitus (3) Dementia (4) Hyperlipemia (5) Hypertension (6) BPH (benign prostatic hyperplasia) (7) S/P CABG x 3 Home Health Nursing Order: Signs/symptoms of disease process Diabetic education Medication education-adverse effect Wound care and dressing changes Nursing assessment with vital signs Instructions: Heart and Vascular Surgery patients *Special attention to sternal dressing Mandatory frequency Assess and evaluation, 4 days in a row The next week 3X week 2 times a week for 4 weeks 1 time a week for 5 weeks Schedule Heart and Vascular patients for full 60 day certification period Initial visit Review Open Heart Surgery Discharge Instructions (Sternal precautions, Activity, Elastic hose, Incision care, Driving, Incentive spirometry, Smoking, Ach[place], Work and other) Need Betadine to paint incision Medication reconciliation Importance of follow up care/ check on appointments Make calendar record temperature daily When to call [facility] nurse, review instructions, phone list Incentive Spirometry, demonstration Visit 1- Begin discharge instruction for patient family and/ or caregiver using teach back method- Signs and symptoms of infection Disease characteristics Medicines and side effects Foods and nutrition/ appetite Infection control/ hand washing/ hygiene Visit 2- Continue teaching Discharge instructions- include additional information on smoking cessation , sternal dressing (sternal vac) Visit 3- Continue teaching- Cough and deep breathing, incision monitoring. Choose my plate Visit 4- Continue teaching- Discuss limitations Discuss how they are feeling Discuss progress toward goals Remaining visits- continue teaching and monitoring For any questions please call : Monday 8am-5pm Heart & Vascular Surgery Office ( Dr. Hill & Dr. Mullen), After Hours / Nights (5pm -8am) Weekends and Holidays Please call [facility] Cardiac Intermediate Care Unit (CIC) Charge Nurse PREVENA Single Use Negative Wound Therapy System Caregiver Instruction Sheet 1. A Prevena dressing system was applied to the chest incision during surgery , to promote wound healing. It works via a suction device (negative pressure wound therapy) to remove low to moderate levels of exudate (drainage) and infectious materials. We recommend that the device stay in place for up to seven days, from day of surgery. 2. Day of Surgery___12/29/17 Day of Removal /12/20 3. The dressing should only be removed by a health care worker. Please arrange removal of device to coincide with Home Health visit and or with Nursing staff at Rehab 4. If skin reddening or irritation of skin occurs, or excessive drainage, please notify the Cardiovascular Surgeons office at [phone]. 5. Light showering is permissible; however the pump should be disconnected and placed in safe location, where it will not get wet. The dressing should not be exposed to direct spray or submerged in water. No bath tub / shower only. Ensure the end of the tubing attached to the dressing is facing down so that water does not enter the top of the tube. 6. To remove Prevena dressing: press purple button to turn off device / remove the suction. Then disconnect the tubing from the pump. The fixation strips should be stretched away from the skin and the dressing lifted at one corner and peeled back until it has been fully removed. 7. After removal, it is ok to shower daily using liquid dial soap and clean wash cloth, rinse and pat dry, and leave incision open to air dry. For any concerns regarding Prevena dressing, and or wounds, please contact Evita Villeda, patient navigator at [phone] or notify the Cardiovascular Surgeons office at [phone]. Incentive spirometry Q1 hr x 10, while awake, also use acapella device hourly whole awake Sternal Breast Bone Precautions: NO pushing or pulling, ( pt must use sternal pillow to support chest with all activities and with coughing ( takes up to 3 months breast bone to heal ) All females to wear sternal bra , launder as needed Daily incision care: ok to shower daily, no tub bath. Wash all incisions with liquid dial soap, clean wash cloth to each site, rinse and pat dry. Observe for any signs of infection, such as drainage which is dark yellow, hickman, green or foul smelling. Immediately report to the surgeon any drainage from the chest incision, or legs, and for any abnormal drainage from the chest tube sites. Notify surgeon if any temp >101.5 degrees F. When specialty dressing removed/ or if you do not have one, continue to shower daily as above, then rinse and pat incision dry and paint with betadine daily x 5 days. Allow steri strips to fall off if you have any. Avoid lotions, creams, salves, oils, etc. for the first month Please see attached forms for additional instructions regarding post Open Heart specialty wound vacuum dressings. ASHTYN or Prevena , Dressing to be removed by Nursing staff on __01/05/18 F/U appointment: as per DC instructions: PCP in 2 weeks, CV surgeon 2 weeks, Environmental Services Director 3-4 weeks For any questions regarding incisions/ dressing / meds / post op care or above Symptoms, Monday 8am-5pm Heart & Vascular Surgery Office ( Dr. Hill & Dr. Mullen), After Hours / Nights (5pm -8am) Weekends and Holidays Please call [facility] Cardiac Intermediate Care Unit (CIC) Charge Nurse I have seen patient Madhav Farr on 12/29/17. My clinical findings support the need for the requested home health care services because: Deconditioned w/ increased weakness I certify that my clinical findings support that this patient is homebound because: Post-op weakness Sujata Molina Dec 29, 2017 13:08
[2017-12-29] MEDS: CLEVIDIPINE INJ 50 ML IV PRN (13:45)
[2017-12-29] MEDS ORDERED: NITROGLYCERIN-DEXTROSE 5% 250 ML for hypertension IV PRN (15:30)
[2017-12-29] MEDS ORDERED: RESP: ALBUTEROL 2.5 MG/IPRATROPIUM 0.5 MG NEB (SCH) NEB (16:00)
[2017-12-29] MEDS: RESP: ALBUTEROL 2.5 MG/IPRATROPIUM 0.5 MG NEB (SCH) NEB ×3 (16:10→21:36)
[2017-12-29] MEDS: KETOROLAC TROMETHAMINE 30 MG/ML (IVP) VIAL IV PUSH PRN (18:09)
[2017-12-29] MEDS: SODIUM CHLORIDE 0.9% FLUSH 10 ML FLUSH IV FLUSH SCH (20:24)
[2017-12-29] MEDS: PREGABALIN 25 MG CAP PO SCH (20:24)
[2017-12-29] MEDS: ceFAZolin 2 GM PREMIX 50 ML IV SCH (20:24)
[2017-12-29] MEDS ORDERED: ATORVASTATIN 10 MG TAB PO SCH (21:00)
[2017-12-29] MEDS: AMIODARONE 200 MG TAB PO SCH (21:17)
[2017-12-29] MEDS: MEMANTINE HCL 10 MG TAB PO SCH (21:17)
[2017-12-30] VITALS (12 sets, daily range): BP systolic 104–148; BP diastolic 44–70; PULSE 68–80; RESP 14–18; TEMP 97.5–99.2; O2SAT 73–98
[2017-12-30] MEDS: ALBUMIN 5% INJ 250 ML IV PRN (00:16)
[2017-12-30] MEDS: ceFAZolin 2 GM PREMIX 50 ML IV SCH ×3 (02:52→17:59)
[2017-12-30] MEDS: CLEVIDIPINE INJ 50 ML IV PRN (02:52)
[2017-12-30] MEDS: RESP: ALBUTEROL 2.5 MG/IPRATROPIUM 0.5 MG NEB (SCH) NEB ×3 (03:15→20:24)
[2017-12-30 04:47] LABS: HEMATOCRIT 32.4 % (39.0-51.0); HEMOGLOBIN 11.2 GM/DL (13.0-17.0); MEAN CELL VOLUME 84.5 FL (80.0-100.0); MEAN CORPUSCULAR HEMOGLOBIN 29.2 PG (27.0-34.0); MEAN CORPUSCULAR HGB CONC 34.6 % (32.0-36.0); MEAN PLATELET VOLUME 9.9 FL (7.0-11.0); PLATELET COUNT 129 TH/MM3 (150-450); RED BLOOD COUNT 3.84 MIL/MM3 (4.50-5.90); RED CELL DISTRIBUTION WIDTH 13.8 % (11.6-17.2); WHITE BLOOD COUNT 6.4 TH/MM3 (4.0-11.0)
[2017-12-30 04:50] LABS: BICARBONATE 24.9 MEQ/L (21.0-32.0); CALCIUM 8.7 MG/DL (8.5-10.1); CREATININE 1.42 MG/DL (0.60-1.30)
[2017-12-30] MEDS: KETOROLAC TROMETHAMINE 30 MG/ML (IVP) VIAL IV PUSH PRN (04:55)
--- NOTE | 2017-12-30 04:56 | RADRPT ---
EXAM DATE/TIME: 12/30/2017 04:18 [facility] COMPARISON: CHEST SINGLE AP, December 29, 2017, 11:46. INDICATIONS : Shortness of breath, possible pneumothorax. MEDICAL HISTORY : Hypertension. Hypercholesterolemia. Diabetes mellitus type II. CVA OK Meza's esophagus SURGICAL HISTORY : Coronary artery stent. CABG. ENCOUNTER: Subsequent ACUITY: 2 days PAIN SCORE: Non-responsive. LOCATION: Bilateral chest FINDINGS: Interval extubation and removal of gastric tube. Mediastinal drain and left chest tube stable in pos ition. Improving infiltrates in the lateral right lung and left lower lung, smaller. No evidence of pneumothorax. CONCLUSION: Decreasing bilateral consolidative infiltrates. Henrique Hastings MD on December 30, 2017 at 4:54 Board Certified Radiologist. This report was verified electronically.
[2017-12-30] MEDS: ACETAMINOPHEN 1000 MG/100 ML 100 ML IV SCH (05:14)
[2017-12-30] MEDS: PANTOPRAZOLE SOD 40 MG DELAYED RELEASE TAB PO SCH (06:15)
[2017-12-30] MEDS ORDERED: INDOMETHACIN 25 MG CAP PO ONE (08:00)
[2017-12-30] MEDS: CLOPIDOGREL 75 MG TAB PO SCH (08:25)
[2017-12-30] MEDS: amLODIPine BESYLATE 5 MG TAB PO SCH (08:25)
[2017-12-30] MEDS: TAMSULOSIN HCL 0.4 MG CAP PO SCH (08:25)
[2017-12-30] MEDS: ASPIRIN 81 MG CHEW TAB PO SCH (08:26)
[2017-12-30] MEDS: PREGABALIN 25 MG CAP PO SCH ×2 (08:26→21:25)
[2017-12-30] MEDS: MEMANTINE HCL 10 MG TAB PO SCH ×2 (08:26→21:26)
[2017-12-30] MEDS: SODIUM CHLORIDE 0.9% FLUSH 10 ML FLUSH IV FLUSH SCH ×2 (08:26→21:28)
[2017-12-30] MEDS: AMIODARONE 200 MG TAB PO SCH ×2 (09:00→21:25)
[2017-12-30] MEDS ORDERED: GLUCAGON 1 MG/ML VIAL IV PUSH PRN (09:45)
[2017-12-30] MEDS ORDERED: DEXTROSE 50% IN WATER 50 ML VIAL(D50) IV PUSH PRN ×2 (09:45→10:15)
[2017-12-30] MEDS ORDERED: SOD PHOSPHATE/SOD BIPHOSPHATE (ADULT) ENEMA 133ML RECTAL PRN (09:45)
[2017-12-30] MEDS ORDERED: BISACODYL 10 MG SUPP RECTAL PRN ×2 (09:45→10:15)
[2017-12-30] MEDS ORDERED: INSULIN DETEMIR 100 UNITS/ML VIAL SQ ONE (09:45)
[2017-12-30] MEDS: INSULIN REGULAR (IV INFUSION) 100 UNITS in SODIUM CHLORIDE 0.9% INJ 99 ML IV PRN (09:49)
[2017-12-30] MEDS ORDERED: INSULIN ASPART SUPPLEMENTAL SCALE SQ SCH (10:00)
--- NOTE | 2017-12-30 10:10 | PD.CAR.PN ---
CVT Progress Note CVT: POD #: 1 Subjective/Hospital Course: 77-year-old / male initially seen 12/20/17, known history of coronary artery disease, status post previous PR and stenting of the LAD in 1995, who now presents with a couple-month history of recurrent chest pain relieved with nitroglycerin spray. The patient has been seen by Dr. Hirsch and has undergone further workup including an echocardiogram, which has revealed preserved ventricular function and a nuclear stress test which was abnormal. Based on this, he was taken to the laboratory apparatus glass grinder which revealed severe 99% disease involving the mid to distal LAD as well as associated proximal LAD lesion of 60 % and circumflex lesion of 80%. EF 55% PAST MEDICAL HISTORY: Significant for coronary artery disease, status post PR and stenting , Hypertension, Diabetes mellitus, Dementia, Idiopathic progressive neuropathy, History of stroke, Meza's esophagus, Hyperlipidemia, GERD, Allergic rhinitis He was electively admitted for surgery 12/29: Off-pump Coronary Artery Bypass Grafting x 3 with Left Internal Mammary Artery (VIVAS) to Left Anterior Descending (LAD), reverse saphenous vein graft to the Diagonal 1 (D1) branch of the LAD, reverse saphenous vein graft to the Obtuse Marginal 2 (OM2), Left Leg Endoscopic Vein [place] 12/30/17 Doing well, no issues today. Objective: Vital Signs Date Time Temp Pulse Resp B/P (MAP) Pulse Ox O2 Delivery O2 Flow Rate FiO2 12/30/17 03:41 96 Nasal Cannula 4.00 12/30/17 03:41 99.2 75 16 104/44 (64) 96 130/45 (73) 12/30/17 03:38 78 12/30/17 02:52 122/60 12/30/17 00:01 98.6 12/29/17 23:20 97 Nasal Cannula 4.00 12/29/17 23:20 99.0 81 16 113/57 (75) 98 142/50 (80) 12/29/17 23:00 80 12/29/17 22:53 98.6 12/29/17 22:30 82 119/49 12/29/17 21:46 97 Nasal Cannula 4.00 12/29/17 20:23 73 125/59 12/29/17 19:45 98 Nasal Cannula 4.00 12/29/17 19:45 97.4 76 16 104/52 (69) 98 139/50 (79) 12/29/17 19:00 68 12/29/17 15:00 52 12/29/17 15:00 97 Nasal Cannula 4.00 12/29/17 15:00 97.6 52 16 106/57 (73) 98 125/56 (79) 12/29/17 15:00 98.6 12/29/17 14:20 98 Nasal Cannula 4.00 12/29/17 14:20 98 Nasal Cannula 4.00 12/29/17 14:20 98 Mechanical Ventilator 40 12/29/17 14:20 98 Nasal Cannula 4 12/29/17 14:20 40 12/29/17 13:45 52 169/67 12/29/17 12:15 95 40 12/29/17 11:45 40 12/29/17 11:45 94 Mechanical Ventilator 40.00 12/29/17 11:44 40 12/29/17 11:41 94 50 12/29/17 11:33 98.6 12/29/17 11:32 94 Mechanical Ventilator 50 12/29/17 11:32 50 12/29/17 11:30 97.5 56 14 91/48 (62) 94 106/42 (63) 12/29/17 11:30 56 Labs: Laboratory Tests Test 12/30/17 04:06 White Blood Count 6.4 TH/MM3 (4.0-11.0) Red Blood Count 3.84 MIL/MM3 (4.50-5.90) Hemoglobin 11.2 GM/DL (13.0-17.0) Hematocrit 32.4 % (39.0-51.0) Mean Corpuscular Volume 84.5 FL (80.0-100.0) Mean Corpuscular Hemoglobin 29.2 PG (27.0-34.0) Mean Corpuscular Hemoglobin Concent 34.6 % (32.0-36.0) Red Cell Distribution Width 13.8 % (11.6-17.2) Platelet Count 129 TH/MM3 (150-450) Mean Platelet Volume 9.9 FL (7.0-11.0) Blood Urea Nitrogen 22 MG/DL (7-18) Creatinine 1.42 MG/DL (0.60-1.30) Random Glucose 123 MG/DL (74-106) Calcium Level 8.7 MG/DL (8.5-10.1) Magnesium Level 2.0 MG/DL (1.5-2.5) Sodium Level 143 MEQ/L (136-145) Potassium Level 4.1 MEQ/L (3.5-5.1) Chloride Level 110 MEQ/L (98-107) Carbon Dioxide Level 24.9 MEQ/L (21.0-32.0) Anion Gap 8 MEQ/L (5-15) Estimat Glomerular Filtration Rate 48 ML/MIN (>89) Result Diagram: 12/30/17 0406 12/30/17 0406 Imaging: Last 24 hours Impressions Chest X-Ray 12/30/17 0500 Signed Impressions: Service Date/Time: Saturday, December 30, 2017 04:18 - CONCLUSION: Decreasing bilateral consolidative infiltrates. Henrique Hastings MD Cardiovascular: RRR Telemetry: NSR Pulmonary: CTA GI/: NABS Incision: dry and intact CT: 520ml since OR Plan: Continue chest tubes Transfer to stepdown Advance diet Encourage ambulation Start Beta mayte, statin Diurese (1) BPH (benign prostatic hyperplasia) (2) Diabetes mellitus (3) Hyperlipemia (4) Hypertension (5) Dementia (6) Coronary artery disease (7) S/P CABG x 3 Anita Mullen MD Dec 30, 2017 10:10
[2017-12-30] MEDS ORDERED: GLUCAGON 1 MG/ML VIAL OTHER PRN (10:15)
--- NOTE | 2017-12-30 10:17 | EKG ---
Date Performed: 12/30/2017 Time Performed: 06:26:40 PTAGE: 77 years EKG: CONSIDER ACUTE ST ELEVATION CO Sinus rhythm Non-specific lateral ST elevation, CONSIDER ACUTE INFARCT, no reciprocal changes Low QRS voltages in precordial leads Abnormal ECG Compared to PREVIOUS TRACING , lateral changes more prominent DOCTOR: Justin Jo Interpretating Date/Time 12/30/2017 10:16:17
[2017-12-30] MEDS: FUROSEMIDE 40 MG/4 ML VIAL IV PUSH SCH (10:39)
[2017-12-30] MEDS: ATORVASTATIN 40 MG TAB PO SCH (13:59)
[2017-12-30] MEDS: INSULIN ASPART SUPPLEMENTAL SCALE SQ SCH ×3 (13:59→21:43)
[2017-12-30] MEDS: INDOMETHACIN 25 MG CAP PO SCH ×2 (13:59→17:59)
[2017-12-30] MEDS ORDERED: RESP: ALBUTEROL 2.5 MG/IPRATROPIUM 0.5 MG NEB (SCH) NEB (14:00)
[2017-12-30] MEDS: ACETAMINOPHEN/HYDROcodone 325 MG/5 MG TAB PO PRN (19:41)
[2017-12-30] MEDS ORDERED: SENNOSIDES 8.6 MG TAB PO SCH (21:00)
[2017-12-30] MEDS ORDERED: DOCUSATE SODIUM 100 MG CAP PO SCH (21:00)
[2017-12-30] MEDS: SENNOSIDES 8.6 MG TAB PO SCH (21:25)
[2017-12-30] MEDS: DOCUSATE SODIUM 100 MG CAP PO SCH (21:25)
[2017-12-30] MEDS: METOPROLOL TARTRATE 25 MG TAB PO SCH (21:26)
[2017-12-31] VITALS (22 sets, daily range): BP systolic 101–147; BP diastolic 41–66; PULSE 62–77; RESP 14–22; TEMP 97.9–98.4; O2SAT 93–97
[2017-12-31] MEDS: INSULIN ASPART SUPPLEMENTAL SCALE SQ SCH ×6 (02:00→20:57)
[2017-12-31] MEDS: ceFAZolin 2 GM PREMIX 50 ML IV SCH (02:28)
[2017-12-31 04:36] LABS: AUTOMATED NEUTROPHIL # 6.1 TH/MM3 (1.8-7.7); BASOPHIL % 0.4 % (0.0-2.0); EOSINOPHIL # 0.1 TH/MM3 (0-0.4); EOSINOPHIL % 0.9 % (0.0-4.0); HEMATOCRIT 31.7 % (39.0-51.0); HEMOGLOBIN 10.8 GM/DL (13.0-17.0); LYMPH % 7.9 % (9.0-44.0); LYMPHOCYTE # 0.6 TH/MM3 (1.0-4.8); MEAN CELL VOLUME 84.3 FL (80.0-100.0); MEAN CORPUSCULAR HEMOGLOBIN 28.8 PG (27.0-34.0); MEAN CORPUSCULAR HGB CONC 34.2 % (32.0-36.0); MONO % 9.1 % (0.0-8.0); MONOCYTE # 0.7 TH/MM3 (0-0.9); NEUT % 81.7 % (16.0-70.0); PLATELET COUNT 135 TH/MM3 (150-450); RED BLOOD COUNT 3.76 MIL/MM3 (4.50-5.90); RED CELL DISTRIBUTION WIDTH 13.6 % (11.6-17.2); WHITE BLOOD COUNT 7.4 TH/MM3 (4.0-11.0)
[2017-12-31 05:01] LABS: BICARBONATE 26.4 MEQ/L (21.0-32.0); CALCIUM 8.2 MG/DL (8.5-10.1); CREATININE 1.65 MG/DL (0.60-1.30)
[2017-12-31] MEDS: PANTOPRAZOLE SOD 40 MG DELAYED RELEASE TAB PO SCH (05:47)
[2017-12-31] MEDS: MAGNESIUM HYDROXIDE SUSP 30 ML CUP PO SCH ×2 (08:39→08:44)
[2017-12-31] MEDS: FUROSEMIDE 40 MG/4 ML VIAL IV PUSH SCH (08:40)
[2017-12-31] MEDS: INDOMETHACIN 25 MG CAP PO SCH (08:40)
[2017-12-31] MEDS: METOPROLOL TARTRATE 25 MG TAB PO SCH ×3 (08:40→20:51)
[2017-12-31] MEDS: PREGABALIN 25 MG CAP PO SCH ×2 (08:40→20:50)
[2017-12-31] MEDS: amLODIPine BESYLATE 5 MG TAB PO SCH (08:41)
[2017-12-31] MEDS: CLOPIDOGREL 75 MG TAB PO SCH (08:41)
[2017-12-31] MEDS: ATORVASTATIN 40 MG TAB PO SCH (08:41)
[2017-12-31] MEDS: AMIODARONE 200 MG TAB PO SCH ×2 (08:41→20:51)
[2017-12-31] MEDS: TAMSULOSIN HCL 0.4 MG CAP PO SCH (08:41)
[2017-12-31] MEDS: ASPIRIN 81 MG CHEW TAB PO SCH (08:41)
[2017-12-31] MEDS: MULTIVITAMINS/MINERALS THERAPEUTIC TAB PO SCH (08:41)
[2017-12-31] MEDS: DOCUSATE SODIUM 100 MG CAP PO SCH ×2 (08:41→20:56)
[2017-12-31] MEDS: MEMANTINE HCL 10 MG TAB PO SCH ×2 (08:41→20:52)
[2017-12-31] MEDS: SODIUM CHLORIDE 0.9% FLUSH 10 ML FLUSH IV FLUSH SCH ×2 (08:42→21:00)
[2017-12-31] MEDS: POLYETHYLENE GLYCOL 17 GM PKG PO SCH ×2 (08:42→09:00)
[2017-12-31] MEDS ORDERED: MAGNESIUM HYDROXIDE SUSP 30 ML CUP PO SCH (09:00)
[2017-12-31] MEDS ORDERED: MULTIVITAMINS/MINERALS THERAPEUTIC TAB PO SCH (09:00)
[2017-12-31] MEDS ORDERED: GLIMEPIRIDE 2 MG TAB PO SCH (09:00)
[2017-12-31] MEDS: RESP: ALBUTEROL 2.5 MG/IPRATROPIUM 0.5 MG NEB (SCH) NEB ×3 (09:12→20:36)
--- NOTE | 2017-12-31 10:01 | PD.CAR.PN ---
CVT Progress Note CVT: POD #: 2 Subjective/Hospital Course: 77-year-old / male initially seen 12/20/17, known history of coronary artery disease, status post previous PA and stenting of the LAD in 1995, who now presents with a couple-month history of recurrent chest pain relieved with nitroglycerin spray. The patient has been seen by Dr. Hirsch and has undergone further workup including an echocardiogram, which has revealed preserved ventricular function and a nuclear stress test which was abnormal. Based on this, he was taken to the chemical laboratory assistant which revealed severe 99% disease involving the mid to distal LAD as well as associated proximal LAD lesion of 60 % and circumflex lesion of 80%. EF 55% PAST MEDICAL HISTORY: Significant for coronary artery disease, status post PA and stenting , Hypertension, Diabetes mellitus, Dementia, Idiopathic progressive neuropathy, History of stroke, Meza's esophagus, Hyperlipidemia, GERD, Allergic rhinitis He was electively admitted for surgery 12/29: Off-pump Coronary Artery Bypass Grafting x 3 with Left Internal Mammary Artery (VIVAS) to Left Anterior Descending (LAD), reverse saphenous vein graft to the Diagonal 1 (D1) branch of the LAD, reverse saphenous vein graft to the Obtuse Marginal 2 (OM2), Left Leg Endoscopic Vein [place] 12/30/17 Doing well, no issues today. 12/31/17 Doing well. c/o chest pain this morning. ECG shown no change from prior study. Resolved currently Objective: Vital Signs Date Time Temp Pulse Resp B/P (MAP) Pulse Ox O2 Delivery O2 Flow Rate FiO2 12/31/17 09:17 97 Nasal Cannula 2.00 12/31/17 08:00 77 12/31/17 07:00 98.4 65 14 101/53 (69) 97 12/31/17 07:00 65 12/31/17 07:00 97 Nasal Cannula 3.00 12/31/17 03:21 98.1 65 18 122/54 (76) 95 12/31/17 03:21 95 Nasal Cannula 3.00 12/31/17 03:11 62 12/30/17 23:25 70 12/30/17 23:00 94 Nasal Cannula 3.00 12/30/17 23:00 98.6 71 18 124/54 (77) 94 12/30/17 20:25 97 Nasal Cannula 3.00 12/30/17 19:32 94 Nasal Cannula 3.00 12/30/17 19:32 98.7 74 18 130/57 (81) 94 12/30/17 19:00 79 12/30/17 15:00 80 12/30/17 15:00 98.1 73 14 116/51 (72) 73 12/30/17 15:00 94 Nasal Cannula 4.00 12/30/17 13:23 98 Nasal Cannula 3.00 12/30/17 11:00 95 Nasal Cannula 4.00 12/30/17 11:00 98.0 80 18 143/70 (94) 95 Arterial Line 12/30/17 11:00 80 Labs: Laboratory Tests Test 12/31/17 04:10 White Blood Count 7.4 TH/MM3 (4.0-11.0) Red Blood Count 3.76 MIL/MM3 (4.50-5.90) Hemoglobin 10.8 GM/DL (13.0-17.0) Hematocrit 31.7 % (39.0-51.0) Mean Corpuscular Volume 84.3 FL (80.0-100.0) Mean Corpuscular Hemoglobin 28.8 PG (27.0-34.0) Mean Corpuscular Hemoglobin Concent 34.2 % (32.0-36.0) Red Cell Distribution Width 13.6 % (11.6-17.2) Platelet Count 135 TH/MM3 (150-450) Mean Platelet Volume 10.0 FL (7.0-11.0) Neutrophils (%) (Auto) 81.7 % (16.0-70.0) Lymphocytes (%) (Auto) 7.9 % (9.0-44.0) Monocytes (%) (Auto) 9.1 % (0.0-8.0) Eosinophils (%) (Auto) 0.9 % (0.0-4.0) Basophils (%) (Auto) 0.4 % (0.0-2.0) Neutrophils # (Auto) 6.1 TH/MM3 (1.8-7.7) Lymphocytes # (Auto) 0.6 TH/MM3 (1.0-4.8) Monocytes # (Auto) 0.7 TH/MM3 (0-0.9) Eosinophils # (Auto) 0.1 TH/MM3 (0-0.4) Basophils # (Auto) 0.0 TH/MM3 (0-0.2) CBC Comment DIFF FINAL Differential Comment Blood Urea Nitrogen 29 MG/DL (7-18) Creatinine 1.65 MG/DL (0.60-1.30) Random Glucose 128 MG/DL (74-106) Calcium Level 8.2 MG/DL (8.5-10.1) Magnesium Level 2.0 MG/DL (1.5-2.5) Sodium Level 141 MEQ/L (136-145) Potassium Level 4.1 MEQ/L (3.5-5.1) Chloride Level 105 MEQ/L (98-107) Carbon Dioxide Level 26.4 MEQ/L (21.0-32.0) Anion Gap 10 MEQ/L (5-15) Estimat Glomerular Filtration Rate 41 ML/MIN (>89) Result Diagram: 12/31/1740912/31/17409 Cardiovascular: RRR Telemetry: NSR Pulmonary: CTA GI/: NABS, NT Incision: dry and intact CT: 40ml/12hrs Plan: Remove chest tubes D/C NSAIDs and lasix due to increased creatinine Encourage ambulation Stim BM BMP in AM (1) BPH (benign prostatic hyperplasia) (2) Diabetes mellitus (3) Hyperlipemia (4) Hypertension (5) Dementia (6) Coronary artery disease (7) S/P CABG x 3 Anita Mullen MD Dec 31, 2017 10:01
[2017-12-31] MEDS ORDERED: ALPRAZolam 0.5 MG TAB PO ONE (20:30)
[2017-12-31] MEDS: SENNOSIDES 8.6 MG TAB PO SCH (20:56)
[2017-12-31] MEDS: ACETAMINOPHEN/HYDROcodone 325 MG/5 MG TAB PO PRN (23:13)
[2018-01-01] VITALS (22 sets, daily range): BP systolic 97–135; BP diastolic 46–60; PULSE 64–82; RESP 18–20; TEMP 97.6–98.9; O2SAT 93–97
[2018-01-01] MEDS: INSULIN ASPART SUPPLEMENTAL SCALE SQ SCH ×5 (02:00→21:29)
[2018-01-01] MEDS: PANTOPRAZOLE SOD 40 MG DELAYED RELEASE TAB PO SCH (05:59)
[2018-01-01 06:51] LABS: BICARBONATE 25.7 MEQ/L (21.0-32.0); CALCIUM 8.6 MG/DL (8.5-10.1); CREATININE 1.66 MG/DL (0.60-1.30)
[2018-01-01] MEDS: RESP: ALBUTEROL 2.5 MG/IPRATROPIUM 0.5 MG NEB (SCH) NEB ×2 (07:48→13:35)
[2018-01-01] MEDS: POLYETHYLENE GLYCOL 17 GM PKG PO SCH (08:11)
[2018-01-01] MEDS: CLOPIDOGREL 75 MG TAB PO SCH (08:12)
[2018-01-01] MEDS: PREGABALIN 25 MG CAP PO SCH ×2 (08:12→20:37)
[2018-01-01] MEDS: ATORVASTATIN 40 MG TAB PO SCH (08:13)
[2018-01-01] MEDS: ASPIRIN 81 MG CHEW TAB PO SCH (08:13)
[2018-01-01] MEDS: DOCUSATE SODIUM 100 MG CAP PO SCH ×2 (08:13→20:44)
[2018-01-01] MEDS: AMIODARONE 200 MG TAB PO SCH ×2 (08:13→20:37)
[2018-01-01] MEDS: MEMANTINE HCL 10 MG TAB PO SCH ×2 (08:13→20:37)
[2018-01-01] MEDS: amLODIPine BESYLATE 5 MG TAB PO SCH (08:14)
[2018-01-01] MEDS: TAMSULOSIN HCL 0.4 MG CAP PO SCH (08:14)
[2018-01-01] MEDS: METOPROLOL TARTRATE 25 MG TAB PO SCH ×2 (08:18→20:37)
[2018-01-01] MEDS: MAGNESIUM HYDROXIDE SUSP 30 ML CUP PO SCH (08:34)
[2018-01-01] MEDS: SODIUM CHLORIDE 0.9% FLUSH 10 ML FLUSH IV FLUSH SCH ×2 (09:00→20:38)
--- NOTE | 2018-01-01 11:49 | PD.CAR.PN ---
CVT Progress Note Subjective/Hospital Course: 77-year-old / male initially seen 12/20/17, known history of coronary artery disease, status post previous IN and stenting of the LAD in 1995, who now presents with a couple-month history of recurrent chest pain relieved with nitroglycerin spray. The patient has been seen by Dr. Hirsch and has undergone further workup including an echocardiogram, which has revealed preserved ventricular function and a nuclear stress test which was abnormal. Based on this, he was taken to the [facility] which revealed severe 99% disease involving the mid to distal LAD as well as associated proximal LAD lesion of 60 % and circumflex lesion of 80%. EF 55% PAST MEDICAL HISTORY: Significant for coronary artery disease, status post IN and stenting , Hypertension, Diabetes mellitus, Dementia, Idiopathic progressive neuropathy, History of stroke, Meza's esophagus, Hyperlipidemia, GERD, Allergic rhinitis He was electively admitted for surgery 12/29: Off-pump Coronary Artery Bypass Grafting x 3 with Left Internal Mammary Artery (VIVAS) to Left Anterior Descending (LAD), reverse saphenous vein graft to the Diagonal 1 (D1) branch of the LAD, reverse saphenous vein graft to the Obtuse Marginal 2 (OM2), Left Leg Endoscopic Vein [place] 12/30/17 Doing well, no issues today. 12/31/17 Doing well. c/o chest pain this morning. ECG shown no change from prior study. Resolved currently 01/01 additional GI motility meds given f/u CXR post chest tube removal f/u BMP in am plan is to dc in home in am Objective: GENERAL: A&O x 3 SKIN: Warm and dry. prevena dressing to chest / incision intact to left leg HEAD: Normocephalic. EYES: No scleral icterus. No injection or drainage. NECK: Supple, trachea midline. No JVD or lymphadenopathy. CARDIOVASCULAR: Regular rate and rhythm without murmurs, gallops, or rubs. RESPIRATORY: Breath sounds equal bilaterally. No accessory muscle use. diminished in bases GASTROINTESTINAL: Abdomen soft, non-tender, slightly distended, soft MUSCULOSKELETAL: No cyanosis, or edema. BACK: Nontender without obvious deformity. No CVA tenderness. Vital Signs Date Time Temp Pulse Resp B/P (MAP) Pulse Ox O2 Delivery O2 Flow Rate FiO2 01/01/18 07:48 95 Nasal Cannula 2.00 01/01/18 07:00 97 Nasal Cannula 2.00 01/01/18 07:00 97.6 73 18 111/57 (75) 97 01/01/18 06:00 70 01/01/18 05:00 69 01/01/18 04:00 74 01/01/18 03:00 75 01/01/18 03:00 93 Nasal Cannula 2.50 01/01/18 03:00 98.4 64 18 97/46 (63) 93 01/01/18 02:00 64 01/01/18 01:00 67 01/01/18 00:15 18 01/01/18 00:00 70 12/31/17 23:00 73 12/31/17 23:00 98.2 73 18 124/57 (79) 95 12/31/17 23:00 95 Nasal Cannula 1.50 12/31/17 22:00 75 12/31/17 21:50 18 12/31/17 21:00 74 12/31/17 20:37 93 Nasal Cannula 1.00 12/31/17 20:00 75 12/31/17 19:00 72 12/31/17 19:00 95 Nasal Cannula 1.50 12/31/17 19:00 97.9 72 22 130/41 (70) 95 12/31/17 18:00 75 12/31/17 17:00 73 12/31/17 16:00 77 12/31/17 15:33 95 Nasal Cannula 1.00 12/31/17 15:00 66 12/31/17 15:00 95 Nasal Cannula 1.00 12/31/17 15:00 98.3 66 14 124/58 (80) 95 12/31/17 14:00 64 12/31/17 13:00 71 12/31/17 12:00 74 Labs: Laboratory Tests Test 01/01/18 05:45 Blood Urea Nitrogen 32 MG/DL (7-18) Creatinine 1.66 MG/DL (0.60-1.30) Random Glucose 165 MG/DL (74-106) Calcium Level 8.6 MG/DL (8.5-10.1) Sodium Level 138 MEQ/L (136-145) Potassium Level 5.2 MEQ/L (3.5-5.1) Chloride Level 104 MEQ/L (98-107) Carbon Dioxide Level 25.7 MEQ/L (21.0-32.0) Anion Gap 8 MEQ/L (5-15) Estimat Glomerular Filtration Rate 40 ML/MIN (>89) Result Diagram: 12/31/17 0410 01/01/18 0545 Telemetry: NSR (1) S/P CABG x 3 Plan: ASA, statin, BB, amiodarone hold on diuresing with elevated creatinine pulm toileting daughter at bedside (2) Coronary artery disease (3) BPH (benign prostatic hyperplasia) Plan: on flomax (4) Diabetes mellitus Plan: insulin sliding scale resume home meds (5) Hyperlipemia Plan: on statin (6) Hypertension Plan: controlled (7) Dementia Sujata Molina Jan 01, 2018 11:49
--- NOTE | 2018-01-01 13:02 | RADRPT ---
EXAM DATE/TIME: 01/01/2018 12:03 [facility] COMPARISON: CHEST SINGLE AP, December 30, 2017, 4:18. INDICATIONS : Follow up post chest tube removal, evaluate for pneumothorax MEDICAL HISTORY : Hypertension. Diabetes mellitus type II. Myocardial infarction. CVA, Meza's esophagus SURGICAL HISTORY : Coronary artery stent. CABG. ENCOUNTER: Subsequent ACUITY: 4 - 6 days PAIN SCORE: 3/10 LOCATION: Bilateral chest FINDINGS: A single AP portable erect expiratory view of the chest was obtained and demonstrates interval remova l of the left-sided chest tube with no pneumothorax. The mediastinal chest tube is been removed as we ll. The patient is again noted to be status post median sternotomy. Hazy opacity remains at the right lung base along the minor fissure. The heart size is mildly prominent. There is no distinct effusion . The left subclavian central venous line has been removed. CONCLUSION: 1. Interval removal of mediastinal chest tube and left-sided chest tube with no pneumothorax. 2. Hazy opacity remains in the left lung. 3. Interval removal of left subclavian central venous line. Shahab Rodriguez MD on January 01, 2018 at 13:00 Board Certified Radiologist. This report was verified electronically.
[2018-01-01] MEDS: ACETAMINOPHEN/HYDROcodone 325 MG/5 MG TAB PO PRN (20:38)
[2018-01-01] MEDS: SENNOSIDES 8.6 MG TAB PO SCH (20:44)
--- NOTE | 2018-01-01 21:31 | EKG ---
Date Performed: 12/31/2017 Time Performed: 09:47:12 PTAGE: 77 years EKG: CONSIDER ACUTE ST ELEVATION [facility] Sinus rhythm Lateral ST elevation, CONSIDER ACUTE INFARCT Abnormal ECG PREVIOUS TRACING : 12/30/2017 06.26 DOCTOR: Moi Rao Interpretating Date/Time 01/01/2018 21:29:54
[2018-01-02] VITALS (14 sets, daily range): BP systolic 115–122; BP diastolic 55–58; PULSE 60–74; RESP 18; TEMP 97.8–98.2; O2SAT 92–94
[2018-01-02] MEDS: PANTOPRAZOLE SOD 40 MG DELAYED RELEASE TAB PO SCH (05:08)
[2018-01-02] MEDS: ACETAMINOPHEN/HYDROcodone 325 MG/5 MG TAB PO PRN (05:08)
[2018-01-02 05:35] LABS: BICARBONATE 25.1 MEQ/L (21.0-32.0); CALCIUM 8.6 MG/DL (8.5-10.1); CREATININE 1.72 MG/DL (0.60-1.30)
[2018-01-02] MEDS: INSULIN ASPART SUPPLEMENTAL SCALE SQ SCH ×2 (08:07→11:33)
[2018-01-02] MEDS: AMIODARONE 200 MG TAB PO SCH (08:07)
[2018-01-02] MEDS: CLOPIDOGREL 75 MG TAB PO SCH (08:07)
[2018-01-02] MEDS: amLODIPine BESYLATE 5 MG TAB PO SCH (08:07)
[2018-01-02] MEDS: DOCUSATE SODIUM 100 MG CAP PO SCH (08:08)
[2018-01-02] MEDS: METOPROLOL TARTRATE 25 MG TAB PO SCH (08:08)
[2018-01-02] MEDS: MEMANTINE HCL 10 MG TAB PO SCH (08:08)
[2018-01-02] MEDS: MULTIVITAMINS/MINERALS THERAPEUTIC TAB PO SCH (08:09)
[2018-01-02] MEDS: PREGABALIN 25 MG CAP PO SCH (08:09)
[2018-01-02] MEDS: ATORVASTATIN 40 MG TAB PO SCH (08:09)
[2018-01-02] MEDS: SODIUM CHLORIDE 0.9% FLUSH 10 ML FLUSH IV FLUSH SCH (08:09)
[2018-01-02] MEDS: ASPIRIN 81 MG CHEW TAB PO SCH (08:10)
[2018-01-02] MEDS: TAMSULOSIN HCL 0.4 MG CAP PO SCH (08:12)
[2018-01-02] MEDS: MAGNESIUM HYDROXIDE SUSP 30 ML CUP PO SCH (09:00)
[2018-01-02] MEDS: POLYETHYLENE GLYCOL 17 GM PKG PO SCH (09:00)
[2018-01-02] MEDS ORDERED: AMIO200T PO (09:36)
[2018-01-02] MEDS ORDERED: METO25TA3 PO (09:36)
[2018-01-02] MEDS ORDERED: ATOR40TA16 PO (09:36)
[2018-01-02] MEDS ORDERED: THERM PO (09:36)
[2018-01-02] MEDS ORDERED: OLME1TAB PO (09:36)
[2018-01-02] MEDS ORDERED: DOCU1CAP39 PO (09:36)
[2018-01-02] MEDS ORDERED: HYDR-3516 PO (09:36)
[2018-01-02] MEDS ORDERED: ASPI81 PO (09:36)
--- NOTE | 2018-01-02 10:25 | HHI.DS ---
Discharge Summary Admission Date Dec 29, 2017 at 05:22 Discharge Date: January 02, 2018 Admitting Diagnosis 1. Severe Two Vessel Coronary Artery Disease. 2. 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 Diabetes mellitus (1) Coronary artery disease Diagnosis: Principal ICD Codes: I25.10 - Atherosclerotic heart disease of [place] coronary artery without angina pectoris (2) Diabetes mellitus Diagnosis: Principal ICD Codes: E11.9 - Type 2 diabetes mellitus without complications Status: Chronic (3) Dementia Diagnosis: Principal ICD Codes: F03.90 - Unspecified dementia without behavioral disturbance Status: Chronic (4) Hyperlipemia Diagnosis: Principal ICD Codes: E78.5 - Hyperlipidemia, unspecified Status: Chronic (5) Hypertension Diagnosis: Principal ICD Codes: I10 - Essential (primary) hypertension Status: Chronic (6) BPH (benign prostatic hyperplasia) Diagnosis: Principal ICD Codes: N40.0 - Benign prostatic hyperplasia without lower urinary tract symptoms Status: Chronic (7) S/P CABG x 3 Diagnosis: Secondary ICD Codes: Z95.1 - Presence of aortocoronary bypass graft Procedures 12/29 1. Off-pump Coronary Artery Bypass Grafting x 3 with Left Internal Mammary Artery (VIVAS) to Left Anterior Descending (LAD), reverse saphenous vein graft to the Diagonal 1 (D1) branch of the LAD, reverse saphenous vein graft to the Obtuse Marginal 2 (OM2) 2. Left Leg Endoscopic Vein [place] 3. Intraoperative Vein Mapping Brief History 77-year-old / male initially seen 12/20/17, known history of coronary artery disease, status post previous RI and stenting of the LAD in 1995, who now presents with a couple-month history of recurrent chest pain relieved with nitroglycerin spray. The patient has been seen by Dr. Hirsch and has undergone further workup including an echocardiogram, which has revealed preserved ventricular function and a nuclear stress test which was abnormal. Based on this, he was taken to the [facility] which revealed severe 99% disease involving the mid to distal LAD as well as associated proximal LAD lesion of 60 % and circumflex lesion of 80%. EF 55% PAST MEDICAL HISTORY: Significant for coronary artery disease, status post RI and stenting , Hypertension, Diabetes mellitus, Dementia, Idiopathic progressive neuropathy, History of stroke, Meza's esophagus, Hyperlipidemia, GERD, Allergic rhinitis He was electively admitted for surgery 12/29: Off-pump Coronary Artery Bypass Grafting x 3 with Left Internal Mammary Artery (VIVAS) to Left Anterior Descending (LAD), reverse saphenous vein graft to the Diagonal 1 (D1) branch of the LAD, reverse saphenous vein graft to the Obtuse Marginal 2 (OM2), Left Leg Endoscopic Vein [place] CBC/BMP: 12/31/17 0410 01/02/18 0446 Significant Findings Laboratory Tests Test 12/31/17 04:10 01/01/18 05:45 01/02/18 04:46 Red Blood Count 3.76 MIL/MM3 (4.50-5.90) Hemoglobin 10.8 GM/DL (13.0-17.0) Hematocrit 31.7 % (39.0-51.0) Platelet Count 135 TH/MM3 (150-450) Neutrophils (%) (Auto) 81.7 % (16.0-70.0) Lymphocytes (%) (Auto) 7.9 % (9.0-44.0) Monocytes (%) (Auto) 9.1 % (0.0-8.0) Lymphocytes # (Auto) 0.6 TH/MM3 (1.0-4.8) Blood Urea Nitrogen 29 MG/DL (7-18) 32 MG/DL (7-18) 37 MG/DL (7-18) Creatinine 1.65 MG/DL (0.60-1.30) 1.66 MG/DL (0.60-1.30) 1.72 MG/DL (0.60-1.30) Random Glucose 128 MG/DL (74-106) 165 MG/DL (74-106) 160 MG/DL (74-106) Calcium Level 8.2 MG/DL (8.5-10.1) Estimat Glomerular Filtration Rate 41 ML/MIN (>89) 40 ML/MIN (>89) 39 ML/MIN (>89) Potassium Level 5.2 MEQ/L (3.5-5.1) Imaging Last Impressions Chest X-Ray 01/01/18 0000 Signed Impressions: Service Date/Time: Monday, January 01, 2018 12:03 - CONCLUSION: 1. Interval removal of mediastinal chest tube and left-sided chest tube with no pneumothorax. 2. Hazy opacity remains in the left lung. 3. Interval removal of left subclavian central venous line. Shahab Rodriguez MD PE at Discharge GENERAL: A&O x 3 SKIN: Warm and dry. prevena dressing to chest, incision intact to left leg HEAD: Normocephalic. EYES: No scleral icterus. No injection or drainage. NECK: Supple, trachea midline. No JVD or lymphadenopathy. CARDIOVASCULAR: Regular rate and rhythm without murmurs, gallops, or rubs. RESPIRATORY: Breath sounds equal bilaterally. No accessory muscle use. GASTROINTESTINAL: Abdomen soft, non-tender, nondistended. MUSCULOSKELETAL: No cyanosis, or edema. BACK: Nontender without obvious deformity. No CVA tenderness. Hospital Course 12/30/17 Doing well, no issues today. 12/31/17 Doing well. c/o chest pain this morning. ECG shown no change from prior study. Resolved currently 01/01 additional GI motility meds given f/u CXR post chest tube removal f/u BMP in am plan is to dc in home in am 01/02 + BM doing well, remains in NSR stable for dc home leave prevena dressing in place Pt Condition on Discharge: Good Discharge Disposition: Disch w/ Home Health Serv Discharge Instructions DIET: Follow Instructions for: Heart Healthy Diet, Diabetic Diet Activities you can perform: Full Weight Bearing, Shower Only-No Bath Activities to avoid: Strenuous Activity, Driving Additional Activity Instructio: no lifting > 8 lbs or gallon of milk Follow up Referrals: Cardiology - 4 Weeks with Travis Hirsch MD Surgical - 2 Weeks with Anupama Hill MD New Medications: Olmesartan (Benicar) 20 Mg Tab 20 MG PO DAILY for Blood Pressure Management, #30 TAB 2 Refills Amiodarone (Amiodarone) 200 Mg Tab 200 MG PO Q12HR for heart rhythm, #28 TAB 0 Refills Aspirin (Tgt Aspirin) 81 Mg Chw 81 MG PO DAILY for Blood Clot Prevention, #30 EA 2 Refills Atorvastatin (Atorvastatin) 40 Mg Tab 40 MG PO DAILY for Cholesterol Management, #30 TAB 2 Refills Docusate Sodium (Dok) 100 Mg Cap 100 MG PO BID for Constipation, #60 CAP 0 Refills Hydrocodone/Acetaminophen (Hydrocodone-Acetamin 5-325 mg) 5 Mg-325 Mg Tablet 1 TAB PO Q4HR PRN for PAIN SCALE 1 TO 5, #40 TAB 0 Refills Metoprolol Tartrate (Metoprolol Tartrate) 25 Mg Tab 12.5 MG PO BID for Blood Pressure Management, #60 TAB 2 Refills Multiple Vitamins W/ Minerals (Thera M Plus) 1 Tab 1 TAB PO DAILY for multi vitamin, #30 TAB 2 Refills Continued Medications: Clopidogrel (Plavix) 75 Mg Tab 75 MG PO HS for Blood Clot Prevention, #30 TAB [address] (Nexium) 40 Mg Capdr 40 MG PO DAILY, CAP 0 Refills Glimepiride (Glimepiride) 2 Mg Tab 2 MG PO DAILY for Blood Sugar Management, #30 TAB 0 Refills Take with breakfast or first main meal Memantine (Namenda) 10 Mg Tab 10 MG PO BID for Alzheimer Disease, #30 TAB 0 Refills Pregabalin (Lyrica) 50 Mg Cap 50 MG PO BID, #60 CAP 0 Refills Tamsulosin (Tamsulosin) 0.4 Mg Cap 0.4 MG PO DAILY for Manage Prostate Problems, #30 CAP 0 Refills Discontinued Medications: Amlodipine (Norvasc) 5 Mg Tab 5 MG PO DAILY for Blood Pressure Management, #30 TAB 0 Refills Olmesartan (Benicar) 40 Mg Tab 40 MG PO DAILY for Blood Pressure Management, #30 TAB 0 Refills Sujata Molina January 02, 2018 10:25
[2018-01-02] MEDS ORDERED: CEPH-460 PO (10:41)
[2018-01-02] MEDS ORDERED: CEPHALEXIN MONOHYDRATE 500 MG CAP PO ONE (10:45)
== END 2018-01-02 14:35 | disposition home health service (06) | DRG 236 ==
LOC: HSDI 05:22 → HCVI 11:35 → HCPC 01-01 08:45
PROVIDERS: ADMIT Thoracic Surgery (Cardiothoracic Vascular Surgery); ATTEND Thoracic Surgery (Cardiothoracic Vascular Surgery)
PROC: 021109W Bypass Coronary Artery, Two Arteries from Aorta with Autologous Venous Tissue, Open Approach (ICD-10-PCS; 2017-12-29)
PROC: 02100Z9 Bypass Coronary Artery, One Artery from Left Internal Mammary, Open Approach (ICD-10-PCS; principal; 2017-12-29 07:15)
PROC: 06BQ4ZZ Excision of Left Saphenous Vein, Percutaneous Endoscopic Approach (ICD-10-PCS; 2017-12-29 07:15)
DX: T82.855A Stenosis of coronary artery stent, initial encounter (principal); G60.3 Idiopathic progressive neuropathy; F03.90 Unspecified dementia, unspecified severity, without behavioral disturbance, psychotic disturbance, mood disturbance, and anxiety; E11.9 Type 2 diabetes mellitus without complications; I10 Essential (primary) hypertension; I25.10 Atherosclerotic heart disease of native coronary artery without angina pectoris; E78.5 Hyperlipidemia, unspecified; K21.9 Gastro-esophageal reflux disease without esophagitis; N40.0 Benign prostatic hyperplasia without lower urinary tract symptoms; K22.70 Barrett's esophagus without dysplasia; Z79.82 Long term (current) use of aspirin; Z79.02 Long term (current) use of antithrombotics/antiplatelets; I25.2 Old myocardial infarction; Z86.73 Personal history of transient ischemic attack (TIA), and cerebral infarction without residual deficits; Z79.84 Long term (current) use of oral hypoglycemic drugs
CPT/HCPCS: 71045; 76937; 80048; 82948; 83735; 85025; 85027; 86920; 93005; 94002; 94150; 94640; 94664; 94667; 94668; C1768; C9248; J0131; J0690; J1644; J1815; J1817; J1885; J1940; J2250; J2370; J2405; J2440; J2720; J3010; J3370; J3475; J3480; J7050; J7120; P9045

== ENCOUNTER → 2018-02-20 | Outpatient (CLI) | payer MEDICARE, OTHER ==
[~2018-02-20] MED LIST changes: +AMIO200T PO; -AMLO5 PO; -ASPI-183 PO; +ASPI81 PO; +ATOR40TA16 PO; -BENI40TA29 PO; +CEPH-460 PO; +DOCU1CAP39 PO; +HYDR-3516 PO; -LIPI10TA PO; +METO25TA3 PO; -NITR400A3 SL; +OLME1TAB PO; +THERM PO
[2018-02-20 17:55] LABS: HEMOGLOBIN A1C 7.2 % (4.3-6.0)
== END ==
LOC: PLAB 08:48
DX: E11.9 Type 2 diabetes mellitus without complications (principal)
CPT/HCPCS: 36415; 83036